=== PATIENT | male | born 1960 | race Caucasian/White ===

== ENCOUNTER → 2018-02-17 | Day surgery (SDC) | payer OTHER ==
[~2018-02-17] MED LIST: BUPIVACAINE 0.25%/EPI 30ML SDV INJ ONE; BUPROPION HCL100 MG PO; CETIRIZINE HCL10 M1 PO; DEXAMETHASONE SOD PHOS INJ 4 MG/ML VIAL ONE; FENTANYL CITRATE/PF 100MCG/2 ML INJ ONE; FLUOXETINE HCL20 MG PO; HYDROCHLOROTHIA25 MG PO; IRBESARTAN150 MG PO; KETOROLAC TROMETHAMINE 30 MG/ML VIAL ONE; LIDOCAINE HCL 1% LOCAL INJ 20 ML VIAL ONE; LIDOCAINE HCL 2% LOCAL INJ 5 ML SDV VIAL INJ ONE; LORATADINE10 MG PO; MIDAZOLAM HCL 2 MG/2 ML VIAL ONE; ONDANSETRON HCL INJ 2 MG/ML VIAL ONE; PANTOPRAZOLE SO40 MG PO; POTASSIUM CHLO10 ME1 PO; PROPOFOL IV EMULSION 10 MG/ML 20 ML VIAL ONE; SEVOFLURANE INHAL SOLN 250 ML PEN BTL ONE; ZOFRAN ODT4 MG SL
[2018-02-17 09:11] LABS: BASOPHILS % 0.4 % (0.0-1.0); EOSINOPHILS # (AUTO) 0.5 (0.0-0.4); HEMATOCRIT 37.1 % (38.2-49.6); HEMOGLOBIN 12.9 g/dL (14.0-18.0); LYMPHOCYTES # (AUTO) 1.8 (1.0-3.2); LYMPHOCYTES % 20.3 % (18.0-39.1); MEAN CORPUSCULAR HEMOGLOBIN 29.7 pg (28-32); MEAN CORPUSCULAR HGB CONC 34.8 g/dL (31-35); MEAN CORPUSCULAR VOLUME 85.3 fL (81-99); MONOCYTES # (AUTO) 0.7 (0.2-0.8); MONOCYTES % 7.4 % (4.4-11.3); NEUTROPHILS % 65.7 % (38.7-80.0); PLATELET COUNT 216 x10e3/uL (140-360); RED BLOOD COUNT 4.35 x10e6/uL (4.3-5.7); RED CELL DISTRIBUTION WIDTH 12.4 % (11.7-14.4)
[2018-02-17 09:31] LABS: ALANINE AMINOTRANSFERASE 19 IU/L (0-55); ALBUMIN 3.8 g/dL (3.5-5.0); ALBUMIN/GLOBULIN RATIO 1.2 (0.8-2.0); ALKALINE PHOSPHATASE 96 IU/L (40-150); ANION GAP 15.9 mmol/L (8-16); BLOOD UREA NITROGEN 13 mg/dL (7-26); BUN/CREATININE RATIO 13 (6-25); CALCIUM 9.8 mg/dL (8.4-10.2); CARBON DIOXIDE 25 mmol/L (22-29); CHLORIDE 97 mmol/L (98-107); CREATININE, SERUM 1.02 mg/dL (0.72-1.25); EST GLOMERULAR FILTRATION RATE > 60 ML/MIN (60-); GLUCOSE 101 mg/dL (74-118); POTASSIUM 3.9 mmol/L (3.5-5.1); SODIUM 134 mmol/L (136-145)
[2018-02-17 13:45] VITALS: BP 138/80
--- OUTSIDE RECORDS SUMMARY | 2018-03-14 05:37 | XMS REPORT | Encounter Summary ---
Author Organization Unknown Address [address] [place] [address] Phone [phone] Reason for Visit Medical Complaint Instructions 1. Acute suppurative otitis media without spontaneous rupture of ear drum Augmentin 875 mg-125 mg tablet ear infection (otitis media): care instructions fluticasone 50 mcg/actuation nasal spray,suspension 2. Otitis externa Ciprodex 0.3 %-0.1 % ear drops,suspension 3. Elevated blood-pressure reading without diagnosis of hypertension dash diet: care instructions Discussion Note Pt is in no apparent acute distress; Verbalizes understanding of and agreement with all instructions with no questions at this time. Plan of Care Patient Instructions Restart flonase, take as directed. Continue allergy medications. Take all medications as directed. Follow up with your PCP as needed. Your blood pressure was elevated at the time of your exam. It is important to tell your PCP about this, and work with them to determine the proper course of treatement to resolve. Seek additional medical care with new or worsening symptoms, or if symptoms do not resolve in 3-4 days. Thank you for allowing me to participate in your healthcare! Reminders Provider Appointments None recorded. Lab None recorded. Referral None recorded. Procedures None recorded. Surgeries None recorded. Imaging None recorded. Medications Name Start Date alendronate 70 mg tablet TAKE 1 TABLET BY MOUTH ONCE A WEEK Augmentin 875 mg-125 mg tablet Take 1 tablet every 12 hours by oral route as directed for 7 days. bupropion HCl XL 300 mg 24 hr tablet, extended release TAKE 1 TABLET BY MOUTH EVERY DAY Chlor-Trimeton Ciprodex 0.3 %-0.1 % ear drops,suspension INSTILL 4 DROPS INTO AFFECTED EAR(S) BY OTIC ROUTE 2 TIMES PER DAY FOR 7 DAYS Claritin dicyclomine 20 mg tablet TAKE 1 TABLET BY MOUTH THREE TIMES A DAY fluoxetine 20 mg capsule TAKE THREE CAPSULES BY MOUTH ONCE DAILY fluticasone 50 mcg/actuation nasal spray,suspension One spray each nostril bid x 7 days, then one spray each nostril daily x 7 days. montelukast 10 mg tablet pantoprazole 40 mg tablet,delayed release potassium chloride ER 20 mEq tablet,extended release(part/cryst) TAKE ONE TABLET BY MOUTH ONE TIME DAILY Prozac valsartan 320 mg-hydrochlorothiazide 25 mg tablet Zyrtec Medications Administered None recorded. Vitals Height Weight BMI Blood Pressure 6 ft 238 lbs 32.3 kg/m2 (1) 138/90 mm[Hg] (2) 135/85 mm[Hg] Lab Results None recorded. Allergies Code Code System Name Reaction Severity Status Onset Sulfa (Sulfonamide Antibiotics) Nausea Active Vomiting Active Problems Name Status Onset Date Source Acute Suppurative Otitis Media without Spontaneous Rupture of Ear Drum Active Encounter Allergic Rhinitis Active Encounter Elevated Blood-pressure Reading without Diagnosis of Hypertension Active Encounter Procedures None recorded. Vaccine List None recorded. 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 History of Present Illness Ear Complaint Reported By: Patient HPI: Location: bilateral. Quality: ears feel full/plugged; more intense pressure to left ear. Severity: same. Duration: constant, started 08/29/17. Onset/Timing: still present. Context: sick contact, history of ear aches/ear infections, exposure to second hand smoke. Modifying factors: does not hurt to lie on, or pull on ear, does not hurt to chew. Associated Symptoms: no discharge from the ears, no hearing loss, no nose/sinus problems, no popping noise in the ears, no ringing in the ears, no fever, no chills, no earache, no dizziness, no vertigo, no headache, no muscle aches Review of Systems:ROS as noted in the HPI Review of Systems Basic Reported By: Patient Physical Exam Adult Basic Reported By: Patient Constitutional: General Appearance: healthy-appearing, well-nourished, well-developed. Level of Distress: NAD. Ambulation: ambulating normally Psychiatric: Mental Status: active and alert. Orientation: to time, to place, to person Eyes: Lids and Conjunctivae: non-injected, no discharge, no pallor. Pupils: PERRLA. Corneas: grossly intact. EOM: EOMI. Lens: clear. Sclerae: non-icteric Egf-Suzw-Kpvpm-Throat: Ears: no lesions on external ear, no outer ear tenderness, EACs clear, middle ear fluid. Hearing: no hearing loss. Nose: no lesions on external nose, nares patent, no septal deviation, nasal passages clear, no sinus tenderness, no nasal discharge. Lips, Teeth, and Gums: no mouth or lip ulcers, no bleeding gums, normal dentition. Oropharynx: moist mucous membranes, no exudates, tonsils not enlarged, erythema Neck: Neck: supple, trachea midline, no masses, FROM. Lymph Nodes: no supraclavicular LAD, anterior cervical LAD. Thyroid: no enlargement, non-tender, no nodules Lungs: Respiratory effort: no dyspnea, no tachypnea, no use of accessory muscles, no intercostal retractions. Percussion: no dullness, flatness, or hyperresonance. Auscultation: breath sounds normal Cardiovascular: Heart Auscultation: RRR, no murmurs Neurologic: Gait and Station: normal gait, normal station. Sensation: grossly intact Skin: Inspection and palpation: no rash, no lesions
--- OUTSIDE RECORDS SUMMARY | 2018-03-14 05:37 | XMS REPORT | Encounter Summary ---
Author Organization Unknown Address [address] [place] [address] Phone [phone] Reason for Visit Medical Complaint Instructions 1. Acute suppurative otitis media without spontaneous rupture of ear drum Augmentin 875 mg-125 mg tablet ear infection (otitis media): care instructions fluticasone 50 mcg/actuation nasal spray,suspension 2. Otitis externa Ciprodex 0.3 %-0.1 % ear drops,suspension Discussion Note Pt is in no apparent acute distress; Verbalizes understanding of and agreement with all instructions with no questions at this time. Plan of Care Patient Instructions Restart flonase, take as directed. Continue allergy medications. Take all medications as directed. Follow up with your PCP as needed. Seek additional medical care with new or [...] Pressure 6 ft 238 lbs 32.3 kg/m2 138/90 mm[Hg] Lab Results None recorded. Allergies Code [...] without Spontaneous Rupture of Ear Drum; Otitis Externa David Ortiz, [facility]-C: [address] [place] [address], Ph. History of Present Illness Ear Complaint [...] intact. EOM: EOMI. Lens: clear. Sclerae: non-icteric Ccq-Oogw-Sjcph-Throat: Ears: no lesions on external ear, no [...]
--- OUTSIDE RECORDS SUMMARY | 2018-03-14 05:37 | XMS REPORT | Encounter Summary ---
Author Organization Unknown Address [address] [place] [address] Phone [phone] Reason for Visit Medical Complaint Instructions 1. Acute sinusitis sinusitis: care instructions fluticasone 50 mcg/actuation nasal spray,suspension amoxicillin 875 mg-potassium clavulanate 125 mg tablet benzonatate 200 mg capsule 2. Elevated blood pressure elevated blood pressure: care instructions low sodium diet (2,000 milligram): care instructions 3. Body mass index 30+ - obesity eating healthy foods: care instructions Discussion Note F/U with your PCP within 3-5 days if s/s continue or worsen. Handout that was given and reviewed and pt verbalized understanding. For worsenening symptoms or shortness/ chest pain develop F/U with ER [facility]. Plan of Care Patient Instructions Take charge of your health handout given and discussed. Reminders Provider Appointments None recorded. Lab None recorded. Referral None recorded. Procedures None recorded. Surgeries None recorded. Imaging None recorded. Medications Name Start Date alendronate 70 mg tablet TAKE 1 TABLET BY MOUTH ONCE A WEEK amoxicillin 875 mg-potassium clavulanate 125 mg tablet Take 1 tablet every 12 hours by oral route with meals for 7 days. benzonatate 200 mg capsule Take 1 capsule 3 times a day by oral route as needed. bupropion HCl XL 300 mg 24 hr tablet, extended release TAKE 1 TABLET BY MOUTH EVERY DAY Chlor-Trimeton ciprofloxacin 500 mg tablet TAKE 1 TABLET BY MOUTH TWICE A DAY Claritin dicyclomine 10 mg capsule TAKE 1 CAPSULE (10 MG TOTAL) BY MOUTH 2 (TWO) TIMES A DAY. dicyclomine 20 mg tablet TAKE 1 TABLET BY MOUTH THREE TIMES A DAY Flonase fluoxetine 20 mg capsule TAKE THREE CAPSULES BY MOUTH ONCE DAILY fluticasone 50 mcg/actuation nasal spray,suspension [place] 1 spray twice a day by intranasal route as directed. methylprednisolone 4 mg tablets in a dose pack TAKE DIRECTED. metronidazole 500 mg tablet TAKE 1 TABLET BY MOUTH 3 TIMES A DAY. DO NOT DRINK ALCOHOL WHILE TAKING montelukast 10 mg tablet potassium chloride ER 20 mEq tablet,extended release(part/cryst) TAKE ONE TABLET BY MOUTH ONE TIME DAILY Prozac Suprep Bowel Prep Kit 17.5 gram-3.13 gram-1.6 gram oral solution USE DIRECTED BY PHYSICIAN INSTRUCTIONS tramadol 50 mg tablet TAKE ONE (1) TABLET(S) BY MOUTH EVERY SIX HOURS NEEDED PAIN 30 DAYS. valsartan 320 mg-hydrochlorothiazide 12.5 mg tablet TAKE 1 TABLET BY MOUTH DAILY valsartan 320 mg-hydrochlorothiazide 25 mg tablet Zyrtec Medications Administered None recorded. Vitals Height Weight BMI Blood Pressure 6 ft 250 lbs 33.9 kg/m2 140/90 mm[Hg] Lab Results None recorded. Allergies Code Code System Name Reaction Severity Onset Sulfa (Sulfonamide Antibiotics) Nausea Vomiting Problems Name Status Onset Date Source Acute Suppurative Otitis Media without Spontaneous Rupture of Ear Drum Active Encounter Acute Sinusitis Active Encounter Allergic Rhinitis Active Encounter Elevated Blood-pressure Reading without Diagnosis of Hypertension Active Encounter Procedures None recorded. Vaccine List None recorded. 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 History of Present Illness Ear Complaint Reported By: Patient HPI: Location: bilateral. Quality: tension. Severity: intermittent, mild. Duration: intermittent. Onset/Timing: still present, gradual. Context: no sick contacts, no recent swimming/water in ear, no exposure to second hand smoke, no head trauma, not grinding teeth, no recent air travel. Modifying factors: hurts to lie on, or pull on ear, OTC medication. Associated Symptoms: no discharge from the ears, no popping noise in the ears, no ringing in the ears, no fever, no chills, no dizziness, no vertigo, no muscle aches, nose/sinus problems, earache, headache Review of Systems:ROS as noted in the HPI Review of Systems Basic Reported By: Patient Ihln-Cfvj-Hnkzh-Throat: Nose: nose/sinus problems Neurologic: Neurologic: no dizziness Physical Exam Adult Basic, Adult Female Complete, Adult Male Complete Reported By: Patient Constitutional: General Appearance: obese. Level of Distress: NAD. Ambulation: ambulating normally Psychiatric: Mental Status: active and alert. Orientation: to time, to place, to person Eyes: Lids and Conjunctivae: non-injected, no discharge, no pallor. Pupils: PERRLA. Sclerae: non-icteric Dhq-Hhgp-Wuffd-Throat: Ears: no lesions on external ear, no outer ear tenderness, EACs clear, TMs clear. Hearing: no hearing loss. Nose: no lesions on external nose, nares patent, no septal deviation, nasal passages clear, sinus tenderness, post nasal drip. Lips, Teeth, and Gums: no mouth or lip ulcers. Oropharynx: moist mucous membranes, no erythema, no exudates, tonsils not enlarged Neck: Neck: supple. Lymph Nodes: anterior cervical LAD Lungs: Respiratory effort: no dyspnea, no tachypnea, no use of accessory muscles, no intercostal retractions. Auscultation: breath sounds normal Cardiovascular: Heart Auscultation: RRR, no murmurs Neurologic: Gait and Station: normal gait, normal station
--- OUTSIDE RECORDS SUMMARY | 2018-03-14 05:37 | XMS REPORT | Clinical Summary ---
Author Author [facility] Organization [facility] Address Unknown Phone Unavailable Care Team Providers Care Head Swamper Name Role Phone Isra Bernstein MD PCP Allergies Active Allergy Reactions Severity Noted Date Comments Ibuprofen Other (See Comments) 03/11/2016 "His face peels" Sulfa (Sulfonamide GI Intolerance 03/11/2016 Severe vomiting Antibiotics) Current Medications Prescription Sig. Disp. Refills Start End Date Status Date potassium chloride Take 20 mEq by mouth 4 12/19/19 Active (K-DUR) 20 MEQ CR tablet daily. 16 cetirizine (ZyrTEC) 10 MG Take 10 mg by mouth Active tablet daily. loratadine (CLARITIN) 10 Take 10 mg by mouth daily Active mg tablet as needed for allergies. buPROPion XL (WELLBUTRIN Take 300 mg by mouth Active XL) 300 MG 24 hr tablet daily. FLUoxetine (PROzac) 20 MG Take 60 mg by mouth Active capsule daily. hydroCHLOROthiazide Take 25 mg by mouth Active (HYDRODIURIL) 25 MG daily. tablet irbesartan (AVAPRO) 300 Take 300 mg by mouth Active MG tablet daily. traMADol (ULTRAM) 50 mg tramadol 50 mg tablet Active tablet TAKE ONE (1) TABLET(S) BY MOUTH EVERY SIX HOURS NEEDED PAIN 30 DAYS. valsartan-hydrochlorothia 03/02/20 03/25/20 Discontin zide (DIOVAN-HCT) 16 17 ued 320-12.5 mg per tablet FLUoxetine (PROzac) 20 MG TAKE THREE CAPSULES BY 3 12/30/19 03/25/20 Discontin capsule MOUTH ONCE DAILY 16 17 ued tramadol-acetaminophen Take 1 tablet by mouth 03/25/20 Discontin (ULTRACET) 37.5-325 mg every 6 (six) hours as 17 ued per tablet needed for moderate pain. naproxen (NAPROSYN) 250 Take 250 mg by mouth 2 03/27/20 Discontin MG tablet (two) times a day with 17 ued meals. buPROPion (WELLBUTRIN) Take 100 mg by mouth 2 03/25/20 Discontin 100 MG tablet (two) times a day. 17 ued sodium,potassium,mag As directed 354 mL 0 03/15/20 03/25/20 Discontin sulfates (SUPREP BOWEL 16 17 ued PREP KIT) 17.5-3.13-1.6 gram recon solnIndications: Left lower quadrant pain dicyclomine (BENTYL) 10 Take 1 capsule (10 mg 60 capsule 0 03/15/20 03/15/20 MG capsuleIndications: total) by mouth 2 (two) 16 17 Left lower quadrant pain times a day. valsartan-hydrochlorothia Take 1 tablet by mouth 01/21/20 Discontin zide (DIOVAN HCT) 320-25 daily. 18 ued mg per tablet montelukast (SINGULAIR) Take 10 mg by mouth 01/21/20 Discontin 10 mg tablet nightly as needed. 18 ued dicyclomine (BENTYL) 20 Take 20 mg by mouth 3 01/24/20 Discontin mg tablet (three) times a day. 18 ued [Currently ON HOLD per MD since ~1 week] amoxicillin-pot Take 1 tablet by mouth 2 14 tablet 0 03/27/20 04/03/20 clavulanate (AUGMENTIN) (two) times a day for 7 17 17 875-125 mg per tablet days. pantoprazole (PROTONIX) Take 1 tablet (40 mg 60 tablet 0 03/27/20 04/26/20 40 MG EC tablet total) by mouth 2 (two) 17 17 times a day for 30 days. hyoscyamine (LEVBID) Take 0.375 mg by mouth 01/24/20 Discontin 0.375 mg 12 hr tablet every 12 (twelve) hours 18 ued as needed. [Currently ON HOLD per MD since ~1 week] pantoprazole (PROTONIX) Take 40 mg by mouth 01/22/20 Discontin 40 MG EC tablet daily. 18 ued pantoprazole (PROTONIX) Take 1 tablet (40 mg 60 tablet 0 01/22/20 02/21/20 40 MG EC tablet total) by mouth 2 (two) 18 18 times a day for 30 days. ondansetron (ZOFRAN) 4 MG Take 1 tablet (4 mg 20 tablet 0 01/22/20 02/21/20 tablet total) by mouth every 8 18 18 (eight) hours as needed for nausea or vomiting for up to 30 days. Active Problems Problem Noted Date LLQ pain 01/25/2018 Last Assessment & Plan: The etiology of LLQ pain remains unclear. I will discuss this with Dr. Fraser. If no other diagnosis can be found, he would like a laparoscopic left inguinal hernia repair with abdominal exploration. I will discuss this option with Dr. 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 Epigastric pain 01/20/2018 Gastric bypass status for obesity 04/14/2017 Last Assessment & Plan: The patient underwent RY[place] [address] Bennett and is advised to return for routine bariatric follow-up. Status post laparoscopy 03/29/2017 Last Assessment & Plan: The patient is s/p laparoscopic closure and Manish patch of perforated duodenal ulcer. He is doing well. H.pylori was negative and cultures showed no growth. He has completed Augmentin. He is instructed to avoid NSAIDS for the rest of his life, as he is s/p RYGB. He will continue Protonix BID x 6 weeks, then once daily x 6 months. Perforated viscus 03/25/2017 Diabetes mellitus (HCC) 04/27/2016 Essential hypertension 04/27/2016 Morbid obesity (HCC) 04/27/2016 Exomphalos 04/27/2016 Encounters Date Type Specialty Care Team Description 02/14/2018 Documentation General Surgery Brandi Porter MA Follow Up 2018 Office Visit General Surgery Mu Zapien MD LLQ pain (Primary Dx) 2018 Telephone General Surgery Mu Zapien MD 02/03/2018 Hospital Radiology Mu Zapien MD LLQ abdominal pain Encounter 01/31/2018 Hospital Radiology Isra Bernstein Gall bladder disease Encounter III, 01/27/2018 Orders Only General Surgery Mu Zapien MD LLQ abdominal pain (Primary Dx) 01/26/2018 Orders Only General Surgery Mu Zapien MD 01/24/2018 Hospital Radiology Mu Zapien MD Encounter 01/24/2018 Ancillary Radiology Mu Zapien MD Orders 01/23/2018 Office Visit General Surgery Mu Zapien MD Left lower quadrant pain (Primary Dx) 01/20/2018 Emergency General Surgery Loida Hill MD Epigastric pain (Primary - Keely Mike Dx) 01/21/2018 MD Curry Riley Lee M., MD 01/19/2018 Transcribe Access Isra Bernstein Gall bladder disease Orders JUAN, (Primary Dx) 04/14/2017 Office Visit General Surgery Mu Zapien MD Status post laparoscopy (Primary Dx) 03/29/2017 Office Visit General Surgery Mu Zapien MD Status post laparoscopy (Primary Dx) 03/27/2017 Documentation General Surgery Denice Zuniga, CLAIRE 03/25/2017 [facility] General Surgery Brandon Alexander MD Perforated viscus - Encounter Mu Zapien MD (Primary Dx) 03/27/2017 03/25/2017 Anesthesia Emergency Medicine Winston Gleason, 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 03/25/2017 Procedure Pass General Surgery 03/25/2017 Surgery General Surgery Mu Zapien MD LAPAROSCOPIC ABDOMINAL WASHOUt, MANISH PATCH, PERFORATED DUODENAL ULCER, WITH EGD after 02/16/2017 Family History Medical History Relation Name Comments Diabetes Brother Hypertension Brother Crohn's disease Daughter Inflammatory bowel Daughter disease Inflammatory bowel Daughter disease Ulcerative colitis Daughter No Known Problems Maternal Grandfather No Known Problems Maternal Grandmother Breast cancer Mother Pancreatic cancer Mother GERD Paternal Grandfather Other Paternal intestinal problems Grandmother GERD Sister Relation Name Status Comments Brother Alive Daughter Alive Daughter Alive Father Alive Maternal Grandfather Maternal Grandmother Mother Paternal Grandfather Paternal Grandmother Sister Alive Social History Tobacco Use Types Packs/Day Years Used Date Never Smoker Smokeless Tobacco: Never Used Alcohol Use Drinks/Week oz/Week Comments No Sex Assigned at Date Recorded Not on file Last Filed Vital Signs Vital Sign Reading Time Taken Blood Pressure 124/81 2018 2:39 PM CDT Pulse 85 2018 2:39 PM CDT Temperature 36.6 C (97.8 F) 2018 2:39 PM CDT Respiratory Rate 16 2018 2:39 PM CDT Oxygen Saturation 100% 01/21/2018 12:06 PM CDT Inhaled Oxygen - - Concentration Weight 104 kg (230 lb 3.2 oz) 2018 2:39 PM CDT Height 182.9 cm (6') 2018 2:39 PM CDT Body Mass Index 31.22 2018 2:39 PM CDT Plan of Treatment Health Maintenance Due Date Last Done Comments DIABETIC FOOT EXAM 02/08/1970 DIABETIC RETINAL EYE EXAM 02/08/1970 URINE MICROALBUMIN 02/08/1970 COLON CANCER SCREENING 02/08/2010 SHINGRIX VACCINE (#1) 02/08/2010 INFLUENZA VACCINE 12/28/2017 Implants Implanted Type Area Electrical Project Manager Device Expiration Model / Identifier Date Serial / Lot Drain Wnd Chnl 15fr 08/12in Rnd Surgical N/A: [employer] 12/27/2021 [id number] / Fl-Flut Yusra - [id number] Implants; Abdomen DIVISION / Implanted: Qty: 1 on 03/25/2017 by [employer]; [id number] Mu Zapien MD Extenders; Surgical Wires Procedures Procedure Name Priority Date/Time Associated Diagnosis Comments CT ENTEROGRAPHY Routine 02/03/2018 LLQ abdominal pain Results for this 1:39 PM CDT procedure are in the results section. NM HEPATOBILIARY W PHARM Routine 01/31/2018 Gall bladder disease Results for this 2:54 PM CDT procedure are in the results section. FOLATE LEVEL Routine 01/21/2018 Results for this 4:00 AM CDT procedure are in the results section. VITAMIN B12 LEVEL Routine 01/21/2018 Results for this 4:00 AM CDT procedure are in the results section. LACTIC ACID LEVEL, SEPSIS Timed 01/20/2018 Results for this - NOW AND REPEAT 2X EVERY 12:13 PM CDT procedure are in the 3 HOURS results section. US GALLBLADDER STAT 01/20/2018 Results for this 8:30 AM CDT procedure are in the results section. URINALYSIS SCREEN AND STAT 01/20/2018 Results for this MICROSCOPY, WITH REFLEX 7:10 AM CDT procedure are in the TO CULTURE results section. URINE CULTURE STAT 01/20/2018 Results for this 7:10 AM CDT procedure are in the results section. LIPASE LEVEL STAT 01/20/2018 Results for this 3:20 AM CDT procedure are in the results section. ZZESTIMATED GFR STAT 01/20/2018 Results for this 3:20 AM CDT procedure are in the results section. MAGNESIUM LEVEL STAT 01/20/2018 Results for this 3:20 AM CDT procedure are in the results section. PHOSPHORUS LEVEL STAT 01/20/2018 Results for this 3:20 AM CDT procedure are in the results section. LACTIC ACID LEVEL, SEPSIS STAT 01/20/2018 Results for this - NOW AND REPEAT 2X EVERY 3:20 AM CDT procedure are in the 3 HOURS results section. COMPREHENSIVE METABOLIC STAT 01/20/2018 Results for this PANEL 3:20 AM CDT procedure are in the results section. HC COMPLETE BLD COUNT STAT 01/20/2018 Results for this W/AUTO DIFF 3:20 AM CDT procedure are in the results section. CT ABD/PELVIC EXTERNAL Routine 01/17/2018 Results for this STUDY 11:30 AM CDT procedure are in the results section. POC GLUCOSE Routine 03/26/2017 Results for this 5:21 PM CDT procedure are in the results section. HELICOBACTER PYLORI ABS Routine 03/26/2017 Results for this 12:07 PM CDT procedure are in the results section. POC GLUCOSE Routine 03/26/2017 Results for this 11:57 AM CDT procedure are in the results section. HC COMPLETE BLD COUNT Routine 03/26/2017 Results for this W/AUTO DIFF 5:20 AM CDT procedure are in the results section. POC GLUCOSE Routine 03/26/2017 Results for this 4:18 AM CDT procedure are in the results section. ZZESTIMATED GFR Routine 03/26/2017 Results for this 12:00 AM CDT procedure are in the results section. BASIC METABOLIC PANEL Routine 03/26/2017 Results for this 12:00 AM CDT procedure are in the results section. POC GLUCOSE Routine 03/25/2017 Results for this 11:05 PM CDT procedure are in the results section. AFB CULTURE Timed 03/25/2017 Results for this 9:11 PM CDT procedure are in the results section. FUNGUS CULTURE Timed 03/25/2017 Results for this 9:11 PM CDT procedure are in the results section. VT AN ELECTIVE Routine 03/25/2017 ENDOTRACHEAL AIRWAY 8:21 PM CDT Procedure Note - Winston Gleason CRNA - 03/25/2017 8:20 PM CDT Airway Date/Time: 03/25/2017 7:40 PM Performed by: WINSTON GLEASON Authorized by: DHOTHER, RANDEE Location: OR Urgency: Elective Difficult Airway: No Resident/C RNA: WINSTON GLEASON Performed by: resident/C RNA Preoxygena brandi with 100% O2: Yes C-spine Precaution s Maintained Throughout : Yes Mask Ventilatio n: Assisted mask Final Airway Type: Endotrache al airway Final Endotrache al Airway: ETT Cuffed: Yes Technique Used: Video laryngosco py Insertion Site: Oral Laryngosco pe Blade/Vide olaryngosc ope Blade Size: 3 ETT Size (mm): 8.0 Cuff at minimum occlusion pressure: Yes Measured from: Teeth ETT to Teeth (cm): 22 Placement Verified by: CO2 detection, direct visualizat ion and equal breath sounds Laryngosco pic view: Grade I - full view of glottis Rapid Sequence Induction (RSI): No Modified RSI: Yes Number of Attempts at Approach: 1 AFB STAIN Timed 03/25/2017 Results for this 8:11 PM CDT procedure are in the results section. FUNGUS SMEAR Timed 03/25/2017 Results for this 8:11 PM CDT procedure are in the results section. GRAM STAIN Timed 03/25/2017 Results for this 8:11 PM CDT procedure are in the results section. AEROBIC CULTURE Timed 03/25/2017 Results for this 8:11 PM CDT procedure are in the results section. ANAEROBIC CULTURE Timed 03/25/2017 Results for this 8:11 PM CDT procedure are in the results section. EXPLORATION, ABDOMEN, 03/25/2017 perforated duodenal ulcer LAPAROSCOPIC 6:30 PM CDT LACTIC ACID LEVEL, SEPSIS Timed 03/25/2017 Results for this - NOW AND REPEAT 2X EVERY 6:16 PM CDT procedure are in the 3 HOURS results section. VT CRITICAL CARE, E/M Routine 03/25/2017 Results for this 30-74 MINUTES 4:25 PM CDT procedure are in the results section. LACTIC ACID LEVEL, SEPSIS Routine 03/25/2017 Results for this - NOW AND REPEAT 2X EVERY 1:49 PM CDT procedure are in the 3 HOURS results section. ZZESTIMATED GFR Routine 03/25/2017 Results for this 1:49 PM CDT procedure are in the results section. TROPONIN Routine 03/25/2017 Results for this 1:49 PM CDT procedure are in the results section. COMPREHENSIVE METABOLIC Routine 03/25/2017 Results for this PANEL 1:49 PM CDT procedure are in the results section. URINALYSIS SCREEN AND Routine 03/25/2017 Results for this MICROSCOPY, WITH REFLEX 1:20 PM CDT procedure are in the TO CULTURE results section. BLOOD CULTURE, AEROBIC & Routine 03/25/2017 Results for this ANAEROBIC 1:15 PM CDT procedure are in the results section. BLOOD CULTURE, AEROBIC & Routine 03/25/2017 Results for this ANAEROBIC 1:10 PM CDT procedure are in the results section. CT ANGIOGRAM CHEST STAT 03/25/2017 Results for this ABDOMEN PELVIS W AND OR 11:52 AM CDT procedure are in the WITHOUT CONTRAST results section. XR CHEST 1 VW PORTABLE STAT 03/25/2017 Results for this 10:34 AM CDT procedure are in the results section. ECG 12-LEAD STAT 03/25/2017 Results for this 10:27 AM CDT procedure are in the results section. POC GLUCOSE Routine 03/25/2017 Results for this 10:26 AM CDT procedure are in the results section. ZZESTIMATED GFR Routine 03/25/2017 Results for this 10:13 AM CDT procedure are in the results section. B NATRIURETIC PEPTIDE Routine 03/25/2017 Results for this 10:13 AM CDT procedure are in the results section. TROPONIN Routine 03/25/2017 Results for this 10:13 AM CDT procedure are in the results section. COMPREHENSIVE METABOLIC Routine 03/25/2017 Results for this PANEL 10:13 AM CDT procedure are in the results section. PARTIAL THROMBOPLASTIN Routine 03/25/2017 Results for this TIME (PTT) 10:13 AM CDT procedure are in the results section. PROTHROMBIN TIME WITH INR Routine 03/25/2017 Results for this 10:13 AM CDT procedure are in the results section. HC COMPLETE BLD COUNT Routine 03/25/2017 Results for this W/AUTO DIFF 10:13 AM CDT procedure are in the results section. URINE CULTURE Routine 03/25/2017 Results for this 10:00 AM CDT procedure are in the results section. ECG 12-LEAD STAT 03/25/2017 Results for this 9:51 AM CDT procedure are in the results section. after 02/16/2017 Results * CT Enterography (02/03/2018 1:39 PM) Narrative Performed At EXAMINATION:CT ENTEROGRAPHY [facility] CLINICAL HISTORY:R10.32 Left lower quadrant pain, LLQ Pain TECHNIQUE:Multiple axial images of the abdomen and pelvis were obtained during intravenous administration of iodinated contrast. Low density oral contrast was administered (CT enterography protocol). Sagittal and coronal computerized reformatted images were also obtained. CT scans are performed using radiation dose reduction techniques. Technical factors are evaluated and adjusted to ensure appropriate moderation of exposure. Automated dose management technology is applied to adjust radiation exposure while achieving a diagnostic quality image COMPARISON:Outside CT 17 January 2018, [facility] CT scan 25 March 2017 IMPRESSION: Abdomen: Liver demonstrates mild fatty metamorphosis.Gallbladder contains no stones.Portal vein is patent. Spleen is normal in size.The pancreas is normal. The adrenal glands are not enlarged.The kidneys demonstrate symmetric bilateral perfusion with no mass or obstruction. Abdominal aorta was of normal caliber. Postoperative changes are present probably gastric bypass surgery with no focal dilatation noted. Small bowel enterography protocol was followed with reasonable dilatation of both the small bowel and colon.There is a small bowel to small bowel suture line noted in the left lower quadrant best seen on sequence 2 image 166 and sequence 300 image 92. There is no mass effect and no focal dilatation or stricture identifiable at the site of the anastomosis.Overall small bowel loops were normal in diameter with no inflammatory changes noted. There are scattered diverticula with no definite inflammatory change. Pelvis: Sigmoid diverticula are numerous with no inflammation.There is no pelvic mass or fluid collection.There is a inguinal hernia on the left which contains only omental fat without inflammation. [id number] Procedure Note Hm Interface, Radiology Results Incoming - 02/03/2018 2:13 PM CDT EXAMINATION: CT ENTEROGRAPHY CLINICAL HISTORY: R10.32 Left lower quadrant pain, LLQ Pain TECHNIQUE: Multiple axial images of the abdomen and pelvis were obtained during intravenous administration of iodinated contrast. Low density oral contrast was administered (CT enterography protocol). Sagittal and coronal computerized reformatted images were also obtained. CT scans are performed using radiation dose reduction techniques. Technical factors are evaluated and adjusted to ensure appropriate moderation of exposure. Automated dose management technology is applied to adjust radiation exposure while achieving a diagnostic quality image COMPARISON: Outside CT 17 January 2018, [facility] CT scan 25 March 2017 IMPRESSION: Abdomen: Liver demonstrates mild fatty metamorphosis. Gallbladder contains no stones. Portal vein is patent. Spleen is normal in size. The pancreas is normal. The adrenal glands are not enlarged. The kidneys demonstrate symmetric bilateral perfusion with no mass or obstruction. Abdominal aorta was of normal caliber. Postoperative changes are present probably gastric bypass surgery with no focal dilatation noted. Small bowel enterography protocol was followed with reasonable dilatation of both the small bowel and colon. There is a small bowel to small bowel suture line noted in the left lower quadrant best seen on sequence 2 image 166 and sequence 300 image 92. There is no mass effect and no focal dilatation or stricture identifiable at the site of the anastomosis. Overall small bowel loops were normal in diameter with no inflammatory changes noted. There are scattered diverticula with no definite inflammatory change. Pelvis: Sigmoid diverticula are numerous with no inflammation. There is no pelvic mass or fluid collection. There is a inguinal hernia on the left which contains only omental fat without inflammation. [id number] Performing Organization Address City/State/Zipcode Phone Number [facility] [address] [place] [address] * DC Hepatobiliary W Pharm (HIDA Scan w Pharm) (01/31/2018 2:54 PM) Narrative Performed At PROCEDURE:DC HEPATOBILIARY W PHARM (HIDA SCAN W PHARM) [facility] INDICATION: Gallbladder disease. TECHNIQUE: The patient was injected with 5 mCi of Tc-99m Choletec and planar dynamic images of the abdomen were acquired for one hour. The patient was then given a fatty meal and a gallbladder ejection fraction was calculated. FINDINGS: Tracer is seen within small bowel by one hour.The gallbladder was only noted on delayed imaging obtained at 90 minutes.After CCK infusion, there appears to be normal contraction of the gallbladder.Exact ejection fraction cannot be calculated given overlying bowel.Reflux into the stomach is noted. IMPRESSION: 1.Probable normal study.Exact gallbladder ejection fraction cannot be calculated, due to interfering loops of small bowel. 2.Enterogastric reflux. [facility]-[id number] Procedure Note Interface, Radiology Results Incoming - 01/31/2018 5:34 PM CDT PROCEDURE: DC HEPATOBILIARY W PHARM (HIDA SCAN W PHARM) INDICATION: Gallbladder disease. TECHNIQUE: The patient was injected with 5 mCi of Tc-99m Choletec and planar dynamic images of the abdomen were acquired for one hour. The patient was then given a fatty meal and a gallbladder ejection fraction was calculated. FINDINGS: Tracer is seen within small bowel by one hour. The gallbladder was only noted on delayed imaging obtained at 90 minutes. After CCK infusion, there appears to be normal contraction of the gallbladder. Exact ejection fraction cannot be calculated given overlying bowel. Reflux into the stomach is noted. IMPRESSION: 1. Probable normal study. Exact gallbladder ejection fraction cannot be calculated, due to interfering loops of small bowel. 2. Enterogastric reflux. [facility]-[id number] Performing Organization Address [facility]/[place] [address] * Folate level (01/21/2018 4:00 AM) Folate 15.6 4.8 - 24.2 ng/mL [facility] DEPARTMENT OF PATHOLOGY AND GENOMIC MEDICINE Specimen Serum Performing Organization Address [facility]ode Phone Number [facility] [place] [address] PATHOLOGY AND GENOMIC MEDICINE * Vitamin B12 level (01/21/2018 4:00 AM) Vitamin B12 >1600 (H) 211 - 946 pg/mL [facility] DEPARTMENT OF Comment: PATHOLOGY AND Significant overlap exists GENOMIC MEDICINE between normal and deficiency states. However, most patients with deficiencies will have Serum B12 <200 pg/mL. Specimen Serum Performing Organization Address [facility]ode Phone Number [facility] [place] [address] PATHOLOGY AND GENOMIC MEDICINE * Lactic acid level, SEPSIS - Now and repeat 2x every 3 hours (01/20/2018 12:13 PM) Only the most recent of 4 results within the time period is included. Lactic acid 0.9 0.5 - 2.2 mmol/L [facility] DEPARTMENT OF PATHOLOGY AND GENOMIC MEDICINE Specimen Blood Performing Organization Address [facility]ome Phone Number [facility] [place] [address] PATHOLOGY AND GENOMIC MEDICINE * US Gallbladder (01/20/2018 8:30 AM) Narrative Performed At Gallbladder ultrasound, 01/20/2018 8:31 AM [facility] Clinical history: Unspecified abdominal pain Comparison: None Technique: Grayscale and color Doppler ultrasound Findings: Gallbladder: Dependent sludge without conspicuous stone. Wall thickness: 0.2 cm. Common bile duct diameter: 0.3 cm Impression: Gallbladder sludge without evidence of acute cholecystitis. Procedure Note Interface, Radiology Results Incoming - 01/20/2018 8:36 AM CDT Gallbladder ultrasound, 01/20/2018 8:31 AM Clinical history: Unspecified abdominal pain Comparison: None Technique: Grayscale and color Doppler ultrasound Findings: Gallbladder: Dependent sludge without conspicuous stone. Wall thickness: 0.2 cm. Common bile duct diameter: 0.3 cm Impression: Gallbladder sludge without evidence of acute cholecystitis. Performing Organization Address City/State/Zipcode Phone Number [facility] [address] [place] [address] * Urinalysis screen and microscopy, with reflex to culture (01/20/2018 7:10 AM) Only the most recent of 2 results within the time period is included. Specimen site Clean catch [facility] DEPARTMENT OF PATHOLOGY AND GENOMIC MEDICINE Color, UA Yellow [facility] DEPARTMENT OF PATHOLOGY AND GENOMIC MEDICINE Appearance, UA Clear [facility] DEPARTMENT OF PATHOLOGY AND GENOMIC MEDICINE Specific gravity, UA 1.019 1.001 - 1.035 [facility] DEPARTMENT OF PATHOLOGY AND GENOMIC MEDICINE pH, UA 5.0 5.0 - 8.5 [facility] DEPARTMENT OF PATHOLOGY AND GENOMIC MEDICINE Protein, UA Negative Negative [facility] [facility] DEPARTMENT OF PATHOLOGY AND GENOMIC MEDICINE Glucose, UA 1+ (A) Negative [facility] DEPARTMENT OF Comment: PATHOLOGY AND UGLU/UKET results called to [facility] and read back by BJORN GONSALES/YONI (name/location) at01/20/201807:49 ___ (date/time) by DB__. Ketones, UA 1+ (A) Negative [facility] DEPARTMENT OF PATHOLOGY AND GENOMIC MEDICINE Bilirubin, UA Negative Negative [facility] DEPARTMENT OF PATHOLOGY AND GENOMIC MEDICINE Blood, UA Negative Negative [facility] DEPARTMENT OF PATHOLOGY AND GENOMIC MEDICINE Nitrite, UA Negative Negative [facility] DEPARTMENT OF PATHOLOGY AND GENOMIC MEDICINE Urobilinogen, UA <2.0 <2.0 [facility] DEPARTMENT OF PATHOLOGY AND GENOMIC MEDICINE Leukocyte esterase, UA Negative Negative [facility] DEPARTMENT OF PATHOLOGY AND GENOMIC MEDICINE Epithelial cells, UA 3 /HPF [facility] DEPARTMENT OF PATHOLOGY AND GENOMIC MEDICINE Round epithelial cells, <1 0 - 1 /HPF [facility] DEPARTMENT OF UA PATHOLOGY AND GENOMIC MEDICINE WBC, UA 2 (H) 0 - 1 /HPF [facility] DEPARTMENT OF PATHOLOGY AND GENOMIC MEDICINE RBC, UA 1 0 - 5 /HPF [facility] DEPARTMENT OF PATHOLOGY AND GENOMIC MEDICINE Bacteria, UA None seen None seen [facility] DEPARTMENT OF PATHOLOGY AND GENOMIC MEDICINE Yeast, UA None seen [facility] DEPARTMENT OF PATHOLOGY AND GENOMIC MEDICINE Yeast with pseudohyphae, None seen [facility] DEPARTMENT UA PATHOLOGY AND GENOMIC MEDICINE Hyaline casts, UA 10 /LPF [facility] DEPARTMENT OF PATHOLOGY AND GENOMIC MEDICINE Specimen Urine Performing Organization Address City/State/Zipcode Phone Number [facility] DEPARTMENT [address] [address] PATHOLOGY AND GENOMIC MEDICINE * Urine culture (01/20/2018 7:10 AM) Only the most recent of 2 results within the time period is included. Urine culture SEE COMMENTComment: [facility] DEPARTMENT OF Bacteriuria screen negative. PATHOLOGY AND GENOMIC MEDICINE Performing Organization Address City/[facility]ode Phone Number [address] [address] PATHOLOGY AND GENOMIC MEDICINE * Estimated GFR (01/20/2018 3:20 AM) Only the most recent of 4 results within the time period is included. GFR Non Af Amer 69 mL/min/1.73 m2 [facility] DEPARTMENT OF PATHOLOGY AND GENOMIC MEDICINE GFR Af Amer 83 mL/min/1.73 m2 [facility] DEPARTMENT OF Comment: PATHOLOGY AND Chronic kidney disease: <60 GENOMIC MEDICINE mL/min/1.73m2 Kidney failure: <15 mL/min/1.73m2 The estimated GFR is calculated from the IDMS-traceable Modification of Diet in Renal Disease Equation. The accuracy of the calculation is poor when the creatinine is normal. Calculated values >90 mL/min/1.73m2 are not reported. This equation has not been validated in children (<18 years), women, the elderly (>70 years), or ethnic groups other than Caucasians and Americans. Specimen Plasma specimen Performing Organization Address City/[facility] Centercode Phone Number [address] [address] PATHOLOGY AND GENOMIC MEDICINE * CBC with platelet and differential (01/20/2018 3:20 AM) Only the most recent of 3 results within the time period is included. WBC 10.51 4.50 - 11.00 k/uL [facility] DEPARTMENT OF PATHOLOGY AND GENOMIC MEDICINE RBC 4.56 4.40 - 6.00 m/uL [facility] DEPARTMENT OF PATHOLOGY AND GENOMIC MEDICINE HGB 13.0 (L) 14.0 - 18.0 g/dL [facility] DEPARTMENT OF PATHOLOGY AND GENOMIC MEDICINE HCT 39.3 (L) 41.0 - 51.0 % [facility] DEPARTMENT OF PATHOLOGY AND GENOMIC MEDICINE MCV 86.2 82.0 - 100.0 fL [facility] DEPARTMENT OF PATHOLOGY AND GENOMIC MEDICINE MCH 28.5 27.0 - 34.0 pg [facility] DEPARTMENT OF PATHOLOGY AND GENOMIC MEDICINE MCHC 33.1 31.0 - 37.0 g/dL [facility] DEPARTMENT OF PATHOLOGY AND GENOMIC MEDICINE RDW - SD 38.9 37.0 - 55.0 fL [facility] DEPARTMENT OF PATHOLOGY AND GENOMIC MEDICINE MPV 9.6 8.8 - 13.2 fL [facility] DEPARTMENT OF PATHOLOGY AND GENOMIC MEDICINE Platelet count 222 150 - 400 k/uL [facility] DEPARTMENT OF PATHOLOGY AND GENOMIC MEDICINE Nucleated RBC 0.00 /100 WBC [facility] DEPARTMENT OF PATHOLOGY AND GENOMIC MEDICINE Neutrophils 80.3 (H) 39.0 - 69.0 % [facility] DEPARTMENT OF PATHOLOGY AND GENOMIC MEDICINE Lymphocytes 7.6 (L) 25.0 - 45.0 % [facility] DEPARTMENT OF PATHOLOGY AND GENOMIC MEDICINE Monocytes 10.2 (H) 0.0 - 10.0 % [facility] DEPARTMENT OF PATHOLOGY AND GENOMIC MEDICINE Eosinophils 1.2 0.0 - 5.0 % [facility] DEPARTMENT OF PATHOLOGY AND GENOMIC MEDICINE Basophils 0.3 0.0 - 1.0 % [facility] DEPARTMENT OF PATHOLOGY AND GENOMIC MEDICINE Immature granulocytes 0.4Comment: "Immature 0.0 - 1.0 % [facility] DEPARTMENT OF granulocytes" (promyelocytes, PATHOLOGY AND myelocytes, metamyelocytes) GENOMIC MEDICINE Specimen Blood Performing Organization Address [facility] Cent[facility] [address] PATHOLOGY AND GENOMIC MEDICINE * Phosphorus level (01/20/2018 3:20 AM) Phosphorus 1.4 (L) 2.4 - 4.5 mg/dL [facility] DEPARTMENT OF PATHOLOGY AND GENOMIC MEDICINE Specimen Plasma specimen Performing Organization Address [facility] [place] [address] PATHOLOGY AND [facility] MED[facility]INE * Magnesium level (01/20/2018 3:20 AM) Magnesium 2.0 1.6 - 2.6 mg/dL [facility] DEPARTMENT OF PATHOLOGY AND GENOMIC MEDICINE Specimen Plasma specimen Performing Organization Address [facility] [place] [address] PATHOLOGY AND [facility] MED[facility] * Lipase level (01/20/2018 3:20 AM) Lipase 58 13 - 60 U/L [facility] DEPARTMENT OF PATHOLOGY AND GENOMIC MEDICINE Specimen Plasma specimen Performing Organization Address [facility] Centerc[place] [address] PATHOLOGY AND GENOMIC MEDICINE * Comprehensive metabolic panel (01/20/2018 3:20 AM) Only the most recent of 3 results within the time period is included. Sodium 135 135 - 148 mEq/L [facility] DEPARTMENT OF PATHOLOGY AND GENOMIC MEDICINE Potassium 4.0 3.5 - 5.0 mEq/L [facility] DEPARTMENT OF PATHOLOGY AND GENOMIC MEDICINE Chloride 95 (L) 98 - 112 mEq/L [facility] DEPARTMENT OF PATHOLOGY AND GENOMIC MEDICINE CO2 26 24 - 31 mEq/L [facility] DEPARTMENT OF PATHOLOGY AND GENOMIC MEDICINE Anion gap 14@ANIO 7 - 15 mEq/L [facility] DEPARTMENT OF PATHOLOGY AND GENOMIC MEDICINE BUN 14 6 - 20 mg/dL [facility] DEPARTMENT OF PATHOLOGY AND GENOMIC MEDICINE Creatinine 1.1 0.7 - 1.2 mg/dL [facility] DEPARTMENT OF PATHOLOGY AND GENOMIC MEDICINE Glucose 125 (H) 65 - 99 mg/dL [facility] DEPARTMENT OF PATHOLOGY AND GENOMIC MEDICINE Calcium 9.2 8.3 - 10.2 mg/dL [facility] DEPARTMENT OF PATHOLOGY AND GENOMIC MEDICINE Protein 6.8 6.3 - 8.3 g/dL [facility] DEPARTMENT OF Comment: PATHOLOGY AND [place] GENOMIC MEDICINE 4.6-7.0 g/dL 1 week 4.4-7.6 g/dL 7 months-1year 5.1-7.3 g/dL 1-2 years5.6-7 .5 g/dL >3 years6.0-8 .0 g/dL 18-150 6.3-8.3 g/dL Albumin 3.3 (L) 3.5 - 5.0 g/dL [facility] DEPARTMENT OF PATHOLOGY AND GENOMIC MEDICINE A/G ratio 0.9 0.7 - 3.8 [facility] DEPARTMENT OF PATHOLOGY AND GENOMIC MEDICINE Alkaline phosphatase 102 40 - 129 U/L [facility] DEPARTMENT OF PATHOLOGY AND GENOMIC MEDICINE AST 18 10 - 50 U/L [facility] DEPARTMENT OF PATHOLOGY AND GENOMIC MEDICINE ALT 11 5 - 50 U/L [facility] DEPARTMENT OF PATHOLOGY AND GENOMIC MEDICINE Total bilirubin 0.3 0.0 - 1.2 mg/dL [facility] DEPARTMENT OF PATHOLOGY AND GENOMIC MEDICINE Specimen Plasma specimen Performing Organization Address City/State/Zipcode Phone Number [facility] DEPARTMENT OF [address] [place] [address] PATHOLOGY AND GENOMIC MEDICINE * CT Abd/Pelvic External Study (01/17/2018 11:30 AM) Narrative Performed At This exam was not acquired at a Orthodox facility and has not been [facility] interpreted by a Orthodox Provider.The exam was imported into our imaging system for comparisons purposes. Performing Organization Address City/State/[place] [address] * POC glucose (03/26/2017 5:21 PM) Only the most recent of 5 results within the time period is included. POC glucose 103 (H) 65 - 99 mg/dL [facility] DEPARTMENT OF Comment: PATHOLOGY AND No Action Needed GENOMIC MEDICINE Meter ID: [id number] Document Manager: Deneen Hartman Performing Organization Address City/[facility]/[place] [address] PATHOLOGY AND GENOMIC MEDICINE * Helicobacter pylori Abs (03/26/2017 12:07 PM) Helicobacter pylori Negative Negative [facility] DEPARTMENT OF [facility] PATHOLOGY AND GENOMIC MEDICINE Specimen Blood Performing Organization Address [facility] Centerc[place] [address] PATHOLOGY AND GENOMIC MEDICINE * Basic metabolic panel (03/26/2017) Sodium 137 135 - 148 mEq/L [facility] DEPARTMENT OF PATHOLOGY AND GENOMIC MEDICINE Potassium 4.1 3.5 - 5.0 mEq/L [facility] DEPARTMENT OF PATHOLOGY AND GENOMIC MEDICINE Chloride 97 (L) 98 - 112 mEq/L [facility] DEPARTMENT OF PATHOLOGY AND GENOMIC MEDICINE CO2 27 24 - 31 mEq/L [facility] DEPARTMENT OF PATHOLOGY AND GENOMIC MEDICINE Anion gap 13 7 - 15 mEq/L [facility] DEPARTMENT OF Comment: PATHOLOGY AND Starting from August GENOMIC MEDICINE , anion gap calculation no longer incorporates potassium. Please note the change. BUN 17 6 - 20 mg/dL [facility] DEPARTMENT OF PATHOLOGY AND GENOMIC MEDICINE Creatinine 0.9 0.7 - 1.2 mg/dL [facility] DEPARTMENT OF PATHOLOGY AND GENOMIC MEDICINE Glucose 203 (H) 65 - 99 mg/dL [facility] DEPARTMENT OF PATHOLOGY AND GENOMIC MEDICINE Calcium 8.4 8.3 - 10.2 mg/dL [facility] DEPARTMENT OF PATHOLOGY AND GENOMIC MEDICINE Specimen Plasma specimen Performing Organization Address City/[facility]/[place] [address] PATHOLOGY AND GENOMIC MEDICINE * AFB culture (03/25/2017 9:11 PM) AFB culture isolate No growth after 6 weeks of [facility] DEPARTMENT OF incubation. PATHOLOGY AND Comment: GENOMIC MEDICINE Specimen Information Specimen Source: Abdominal fluid Specimen Site: Contaminated abdominal fluid Specimen Abdominal fluid Performing Organization Address City/[facility]/Zipcode Phone Number [facility] DEPARTMENT OF [address] [place] [address] PATHOLOGY AND GENOMIC MEDICINE * Fungus culture (03/25/2017 9:11 PM) Fungus culture isolate No growth after 4 weeks of [facility] DEPARTMENT OF incubation. PATHOLOGY AND Comment: GENOMIC MEDICINE Specimen Information Specimen Source: Abdominal fluid Specimen Site: Contaminated abdominal fluid Specimen Abdominal fluid Performing Organization Address City/State/Zipcode Phone Number [facility] DEPARTMENT OF [address] [place] [address] PATHOLOGY AND GENOMIC MEDICINE * Fungus smear (03/25/2017 8:11 PM) Fungus smear No fungi observed. [facility] DEPARTMENT OF Comment: PATHOLOGY AND Specimen Information GENOMIC MEDICINE Specimen Source: Abdominal fluid Specimen Site: Contaminated abdominal fluid Specimen Abdominal fluid Performing Organization Address [facility] Centercode Phone Number [facility] DEPARTMENT OF [address] [place] [address] PATHOLOGY AND GENOMIC MEDICINE * Aerobic culture (03/25/2017 8:11 PM) Aerobic culture isolate No growth after 3 days. [facility] DEPARTMENT OF Comment: PATHOLOGY AND Specimen Information GENOMIC MEDICINE Specimen Source: Abdominal fluid Specimen Site: Contaminated abdominal fluid Specimen Abdominal fluid Performing Organization Address [facility] Centercode Phone Number [facility] DEPARTMENT OF [address] [place] [address] PATHOLOGY AND GENOMIC MEDICINE * Gram stain (03/25/2017 8:11 PM) Gram stain isolate Many WBC's [facility] DEPARTMENT OF No organisms seen PATHOLOGY AND Comment: GENOMIC MEDICINE Specimen Information Specimen Source: Abdominal fluid Specimen Site: Contaminated abdominal fluid Specimen Abdominal fluid Performing Organization Address City/[facility]ercode Phone Number [facility] DEPARTMENT OF [address] [place] [address] PATHOLOGY AND GENOMIC MEDICINE * AFB stain (03/25/2017 8:11 PM) AFB stain No acid fast bacilli (AFB) [facility] DEPARTMENT OF seen. PATHOLOGY AND Comment: GENOMIC MEDICINE Specimen Information Specimen Source: Abdominal fluid Specimen Site: Contaminated abdominal fluid Specimen Abdominal fluid Performing Organization Address City/[facility]/Zipcode Phone Number [facility] DEPARTMENT OF [address] [place] [address] PATHOLOGY AND GENOMIC MEDICINE * Anaerobic culture (03/25/2017 8:11 PM) Anaerobic culture isolate No anaerobic organisms [facility] DEPARTMENT OF isolated. PATHOLOGY AND Comment: GENOMIC MEDICINE Specimen Information Specimen Source: Abdominal fluid Specimen Site: Contaminated abdominal fluid Specimen Abdominal fluid - Other Performing Organization Address City/[facility]/Zipcode Phone Number [facility] DEPARTMENT OF [address] [place] [address] PATHOLOGY AND GENOMIC MEDICINE * CRITICAL CARE (03/25/2017 4:25 PM) Narrative Performed At Brandon Alexander MD 03/25/20174:25 PM Critical Care Performed by: BRANDON ALEXANDER Authorized by: BRANDON ALEXANDER Critical care provider statement: Critical care time (minutes):35 Critical care time was exclusive of:Separately billable procedures and treating other patients and teaching time Critical care was necessary to treat or prevent imminent or life-threatening deterioration of the following conditions: perforated duodenal ulcer. Critical care was time spent personally by me on the following activities:Blood draw for specimens, development of treatment plan with patient or surrogate, discussions with consultants, discussions with primary provider, evaluation of patient's response to treatment, obtaining history from patient or surrogate, ordering and performing treatments and interventions, ordering and review of laboratory studies, pulse oximetry, review of old charts, re-evaluation of patient's condition and ordering and review of radiographic studies * Troponin (03/25/2017 1:49 PM) Only the most recent of 2 results within the time period is included. Troponin <0.30 0.00 - 0.30 ng/mL [facility] DEPARTMENT OF Comment: PATHOLOGY AND 0.30 - 1.49 GENOMIC MEDICINE ng/mlMay indicate increased risk of acute coronary syndrome. >=1.5 ng/ml Consistent with acute myocardial infarction. The diagnostic value of a single normal or non-diagnostic result is questionable.Serial samples at 2-6 hour intervals are required to rule out acute myocardial injury. Specimen Plasma specimen Performing Organization Address City/State/Zipcode Phone Number [address] [address] PATHOLOGY AND GENOMIC MEDICINE * Blood culture, aerobic & anaerobic (03/25/2017 1:15 PM) Only the most recent of 2 results within the time period is included. Blood culture isolate No growth after 5 days of [facility] DEPARTMENT OF incubation. PATHOLOGY AND Comment: GENOMIC MEDICINE Specimen Information Specimen Source: Blood Specimen Site: Forearm, right Specimen Blood - Forearm, right Performing Organization Address City/State/Zipcode Phone Number [facility] DEPARTMENT OF [address] [place] [address] PATHOLOGY AND GENOMIC MEDICINE * CT Angiogram Chest W Contrast Abdomen W Contrast Pelvis W Contrast (03/25/2017 11:52 AM) Narrative Performed At EXAMINATION:CT ANGIOGRAM CHEST ABDOMEN PELVIS W AND OR WITHOUT CONTRAST [facility]IANT CLINICAL HISTORY:Chest pain. Evaluate for dissection. TECHNIQUE:Multiple CT angiographic images of the chest, abdomen, and pelvis were obtained during intravenous administration of contrast. Multiple computerized reformatted images as well as 3-D volume rendered images were also obtained. Scan was performed using radiation dose reduction techniques. COMPARISON:CT abdomen and pelvis May 11, 2016 FINDINGS: CTA: 1.Aorta is slightly tortuous and normal in caliber. No aortic dissection. 2.No pulmonary arterial filling defects are seen. 3.Major visceral arterial branches from the abdominal aorta are adequately patent. Separate origins are noted of the common hepatic and the replaced left hepatic arteries. There are 2 right renal arteries. 4.Bilateral iliac arteries without significant disease. Other Chest: 1.Extensive dependent-basilar atelectasis. Central airways are patent. 2.No pleural or pericardial effusion. 3.Minimal gynecomastia. Other Abdomen and Pelvis: 1. There is trace perihepatic free fluid and tiny pneumoperitoneum. 2.Some thickening and stranding is seen in the proximal duodenum. 3.Gallbladder is slightly distended with mild adjacent stranding, thought to be likely secondary to the adjacent duodenal process. Pancreas is atrophic but otherwise unremarkable. 4.Patient is status post Gayle-en-Y gastric bypass surgery. There is no bowel obstruction. 5.Extensive diverticulosis in the distal colon without diverticulitis. 6.Small left inguinal hernia contains fat. IMPRESSION: No aortic dissection. Small free fluid and free air in RUQ is most likely related to perforated duodenal ulcer. Status post Gayle-en-Y gastric bypass surgery. No bowel obstruction. Findings were discussed withDR. BRANDON ALEXANDER at 03/25/2017 12:02 PM who verbalized understanding. [id number] Procedure Note Interface, Radiology Results Incoming - 03/25/2017 12:05 PM CDT EXAMINATION: CT ANGIOGRAM CHEST ABDOMEN PELVIS W AND OR WITHOUT CONTRAST CLINICAL HISTORY: Chest pain. Evaluate for dissection. TECHNIQUE: Multiple CT angiographic images of the chest, abdomen, and pelvis were obtained during intravenous administration of contrast. Multiple computerized reformatted images as well as 3-D volume rendered images were also obtained. Scan was performed using radiation dose reduction techniques. COMPARISON: CT abdomen and pelvis May 11, 2016 FINDINGS: CTA: 1. Aorta is slightly tortuous and normal in caliber. No aortic dissection. 2. No pulmonary arterial filling defects are seen. 3. Major visceral arterial branches from the abdominal aorta are adequately patent. Separate origins are noted of the common hepatic and the replaced left hepatic arteries. There are 2 right renal arteries. 4. Bilateral iliac arteries without significant disease. Other Chest: 1. Extensive dependent-basilar atelectasis. Central airways are patent. 2. No pleural or pericardial effusion. 3. Minimal gynecomastia. Other Abdomen and Pelvis: 1. There is trace perihepatic free fluid and tiny pneumoperitoneum. 2. Some thickening and stranding is seen in the proximal duodenum. 3. Gallbladder is slightly distended with mild adjacent stranding, thought to be likely secondary to the adjacent duodenal process. Pancreas is atrophic but otherwise unremarkable. 4. Patient is status post Gayle-en-Y gastric bypass surgery. There is no bowel obstruction. 5. Extensive diverticulosis in the distal colon without diverticulitis. 6. Small left inguinal hernia contains fat. IMPRESSION: No aortic dissection. Small free fluid and free air in RUQ is most likely related to perforated duodenal ulcer. Status post Gayle-en-Y gastric bypass surgery. No bowel obstruction. Findings were discussed with DR. BRANDON ALEXANDER at 03/25/2017 12:02 PM who verbalized understanding. [id number] Performing Organization Address City/State/Zipcode Phone Number [facility] [address] [place] [address] * XR Chest 1 Vw Portable (03/25/2017 10:34 AM) Narrative Performed At EXAMINATION:XR CHEST 1 VW PORTABLE [facility] CLINICAL HISTORY:Chest Pain COMPARISON:None. IMPRESSION: Single frontal view reveals a normal cardiomediastinal silhouette. Patchy bibasilar airspace opacities are seen concerning for early developing pneumonia. Pleural margins are sharp. The remainder of the examination is unremarkable. [id number] Procedure Note Interface, Radiology Results Incoming - 03/25/2017 10:42 AM CDT EXAMINATION: XR CHEST 1 VW PORTABLE CLINICAL HISTORY: Chest Pain COMPARISON: None. IMPRESSION: Single frontal view reveals a normal cardiomediastinal silhouette. Patchy bibasilar airspace opacities are seen concerning for early developing pneumonia. Pleural margins are sharp. The remainder of the examination is unremarkable. [id number] Performing Organization Address [facility] Phone Number [facility] [address] [place] [address] * ECG 12 lead (03/25/2017 10:27 AM) Only the most recent of 2 results within the time period is included. Ventricular rate 86 [facility]USE Atrial rate 86 [facility] MUSE VT interval 166 [facility] QRSD interval 136 [facility] QT interval 410 [facility] QTC interval 490 [facility] MUSE P axis 1 80 [facility] QRS axis 1 204 [facility] T wave axis 61 [facility] EKG impression Normal sinus rhythm-Right [facility] bundle branch block-Abnormal ECG-No previous ECGs available- Performing Organization Address [facility] Phone Number [facility] M[facility] [address] [place] [address] * Partial thromboplastin time, activated (03/25/2017 10:13 AM) PTT 25.3 23.0 - 36.0 sec [facility] DEPARTMENT OF Comment: PATHOLOGY AND PTT therapeutic range for [place] MEDICINE unfractionated heparin is 61.0-112.0 seconds which corresponds to Anti-Xa 0.3-0.7 U/ml. Specimen Blood Performing Organization Address [facility]ode Phone Number [facility] DEPARTMENT OF [address] [place] [address] PATHOLOGY AND GENOMIC MEDICINE * Prothrombin time with INR (03/25/2017 10:13 AM) Prothrombin time 14.0 12.0 - 15.0 sec [facility] DEPARTMENT OF PATHOLOGY AND GENOMIC MEDICINE INR 1.1 [facility] DEPARTMENT OF Comment: PATHOLOGY AND The International Normalized GENOMIC MEDICINE Ratio (INR) is a therapeutic monitoring tool for patients who are stable on oral anticoagulant therapy. An INR of 2.0-3.0 is suggested for deep vein thrombosis/pulmonary embolism. Specimen Blood Performing Organization Address City/State/Zipcode Phone Number [facility] DEPARTMENT OF [address] [place] [address] PATHOLOGY AND GENOMIC MEDICINE * B natriuretic peptide (03/25/2017 10:13 AM) BNP 10 0 - 100 pg/mL [facility] DEPARTMENT OF PATHOLOGY AND GENOMIC MEDICINE Specimen Blood Performing Organization Address City/[facility]/Zipcode Phone Number [facility] DEPARTMENT OF [address] [place] [address] PATHOLOGY AND GENOMIC MEDICINE after 02/16/2017 Insurance Payer Benefit Subscriber ID Type Phone Address Plan / Group AETNA AETNA PPO xxxxxxxxxx PPO OPEN CHOICE Work: [id number] [place] [id number] Home:
--- NOTE | 2018-03-27 00:02 | Operative Report ---
DATE OF PROCEDURE: February 17, 2018 PREOPERATIVE DIAGNOSIS: Left inguinal hernia. POSTOPERATIVE DIAGNOSIS: Left inguinal hernia. OPERATION PERFORMED: Repair of left inguinal hernia with Prolene hernia system. ANESTHESIA: General. COMPLICATIONS: None. ESTIMATED BLOOD LOSS: Minimal. DESCRIPTION OF PROCEDURE: With the patient lying in bed in the supine position under good general anesthesia, the abdomen was prepped with Betadine solution and draped in the usual manner. A left inguinal incision was made, was carried down through the subcutaneous tissue down to the external oblique aponeurosis. External oblique was opened along the length of its fibers and external inguinal ring was opened. The cord was then mobilized and retracted. Exploration revealed presence of a direct hernia, which was and imbricated with a pursestring suture of 2-0 silk. The preperitoneal space was then entered right through the internal ring and a pocket was created without any difficulty. An extended Prolene hernia system was placed in the preperitoneal space and the underlay patch was deployed without any problems. The overlay patch was then placed over the floor and split inferolaterally to allow for passage of the cord. The mesh was then sutured to the conjoint tendon and the inguinal ligament using interrupted sutures of 2-0 Vicryl. The whole area was thoroughly irrigated. Perfect hemostasis was ascertained. All layers were infiltrated on the way out with solution of 0.25% Marcaine and 1% Xylocaine mixed in equal parts. The external oblique aponeurosis was then closed with a running suture of 2-0 Vicryl. The subcutaneous tissue was approximated with 3-0 plain and the skin was closed with clips. Dressing was applied. The sponge, lap, and needle count was correct. The patient tolerated the procedure well and returned to the recovery room in stable condition. Job#: [id number] VAS
== END | disposition home or self-care (01) ==
LOC: OR 07:25
PROVIDERS: ATTEND Surgery
DX: K40.90 Unilateral inguinal hernia, without obstruction or gangrene, not specified as recurrent (principal); I10 Essential (primary) hypertension; M54.9 Dorsalgia, unspecified; M54.2 Cervicalgia; K25.9 Gastric ulcer, unspecified as acute or chronic, without hemorrhage or perforation; K44.9 Diaphragmatic hernia without obstruction or gangrene; I45.10 Unspecified right bundle-branch block; F32.9 Major depressive disorder, single episode, unspecified; F41.9 Anxiety disorder, unspecified; Z88.2 Allergy status to sulfonamides
CPT/HCPCS: 36415; 49505; 80053; 85025; 93005; C1781; J1100; J1885; J2001 ×2; J2250; J2405

== ENCOUNTER → 2018-09-29 | Day surgery (SDC) | payer OTHER ==
[~2018-09-29] MED LIST changes: +ACETAMINOPHEN 1000 MG/100 ML IV ONE; +BUPROPION XL300 MG; +CALCIUM CARBON500 MG PO; +CEFOXITIN SOD 1 GM VIAL ONE; +EPHEDRINE SULFATE INJ 50 MG/10 ML SYR ONE; +FIBERCON625 MG PO; +IRON; -KETOROLAC TROMETHAMINE 30 MG/ML VIAL ONE; +MEPERIDINE HCL INJ 25 MG/ML VIAL ONE; +MONTELUKAST SOD10 MG PO; +MUCINEX DM ER1 EACH PO; +MULTI-VITAMIN1 EACH; -ONDANSETRON HCL INJ 2 MG/ML VIAL ONE; +ONDANSETRON HCL INJ 2MG/ML 2ML 2 MG/ML VIAL ONE; +PSEUDOEPHEDRINE30 MG PO; +VITAMIN B12; +VITAMIN C; +VITAMIN D3
--- OUTSIDE RECORDS SUMMARY | 2018-09-29 09:23 | XMS REPORT | Clinical Summary ---
Author Author [facility] Organization [facility] Address Unknown Phone Unavailable Care Team Providers Care Roving Or Yarn Color Checker Name Role Phone Isra Bernstein MD PCP Allergies Comments Active Allergy Reactions Severity Noted Date "His face peels" Ibuprofen Other (See 03/11/2016 Comments) Severe vomiting Sulfa (Sulfonamide GI 03/11/2016 Antibiotics) Intolerance Medications End Date Status Medication Sig Dispensed Refills Start Date Active potassium chloride Take 20 mEq 4 (K-DUR) 20 MEQ CR tablet by mouth 6 daily. Active cetirizine (ZyrTEC) 10 MG Take 10 mg by 0 tablet mouth daily. Active loratadine (CLARITIN) 10 Take 10 mg by 0 mg tablet mouth daily as needed for allergies. Active buPROPion XL (WELLBUTRIN Take 300 mg 0 XL) 300 MG 24 hr tablet by mouth daily. Active FLUoxetine (PROzac) 20 MG Take 60 mg by 0 capsule mouth daily. Active hydroCHLOROthiazide Take 25 mg by 0 (HYDRODIURIL) 25 MG mouth daily. tablet Active irbesartan (AVAPRO) 300 Take 300 mg 0 MG tablet by mouth daily. Active traMADol (ULTRAM) 50 mg tramadol 50 0 tablet mg tablet TAKE ONE (1) TABLET(S) BY MOUTH EVERY SIX HOURS NEEDED PAIN 30 DAYS. 01/20/2018 Discontinued valsartan-hydrochlorothia Take 1 tablet 0 zide (DIOVAN HCT) 320-25 by mouth mg per tablet daily. 01/20/2018 Discontinued montelukast (SINGULAIR) Take 10 mg by 0 10 mg tablet mouth nightly as needed. 01/23/2018 Discontinued dicyclomine (BENTYL) 20 Take 20 mg by 0 mg tablet mouth 3 (three) times a day. [Currently ON HOLD per MD since ~1 week] 01/23/2018 Discontinued hyoscyamine (LEVBID) Take 0.375 mg 0 0.375 mg 12 hr tablet by mouth every 12 (twelve) hours as needed. [Currently ON HOLD per MD since ~1 week] 01/21/2018 Discontinued pantoprazole (PROTONIX) Take 40 mg by 0 40 MG EC tablet mouth daily. 02/20/2018 pantoprazole (PROTONIX) Take 1 tablet 60 tablet 0 40 MG EC tablet (40 mg total) 8 by mouth 2 (two) times a day for 30 days. 02/20/2018 ondansetron (ZOFRAN) 4 MG Take 1 tablet 20 tablet 0 tablet (4 mg total) 8 by mouth every 8 (eight) hours as needed for nausea or [...] discuss this option with Dr. 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 Epigastric pain 01/20/2018 Gastric bypass status for obesity 04/14/2017 Last Assessment & Plan: The patient [place] RY[place] [address] Bennett and is advised to return for routine bariatric follow-up. Status post laparoscopy 03/29/2017 Last Assessment & Plan: The patient is s/p laparoscopic closure and Woody patch of perforated duodenal ulcer. He is doing well. H.pylori was negative and cultures showed no growth. He has completed Augmentin. He is instructed to avoid NSAIDS for the rest of his life, as he is s/p RYGB. He will continue Protonix BID x 6 weeks, then once daily x 6 months. Perforated viscus 03/25/2017 Diabetes mellitus 04/27/2016 Essential hypertension 04/27/2016 Morbid obesity 04/27/2016 Exomphalos 04/27/2016 Encounters Care Team Description Date Type Specialty Brandi Porter MA Follow Up 02/14/2018 Documentation General Surgery Mu Zapien MD LLQ pain (Primary Dx) 2018 Office Visit General Surgery Mu Zapien MD 2018 Telephone General Surgery Mu Zapien MD LLQ abdominal pain 02/03/2018 Hospital Radiology Encounter Isra Bernstein III, MD Gall bladder disease 01/31/2018 Hospital Radiology Encounter Mu Zapien MD LLQ abdominal pain (Primary Dx) 01/27/2018 Orders Only General Surgery Mu Zapien MD 01/26/2018 Orders Only General Surgery Mu Zapien MD 01/24/2018 Hospital Radiology Encounter Mu Zapien MD Left lower quadrant pain (Primary Dx) 01/23/2018 Office Visit General Surgery Loida Hill MD Boyareddigari, Prasanth R., MD Morris, Lee M., MD Epigastric pain (Primary Dx) 01/20/2018 Emergency General Surgery - 01/21/2018 Isra Bernstein III, MD Gall bladder disease (Primary Dx) 01/19/2018 Transcribe Access Orders after 09/28/2017 Family History Medical History Relation Name Comments [...] Grandfather Paternal Grandmother Sister Alive Social History Date Tobacco Use Types Packs/Day Years Used Never Smoker Smokeless Tobacco: Never Used Alcohol Use Drinks/Week oz/Week Comments No Sex Assigned at Date Recorded Not on file Industry Job Start Date Occupation Not on file Not on file Not on file Travel End Travel History Travel Start No recent travel history available. Last Filed Vital Signs Time Taken Vital Sign Reading 2018 2:39 PM CDT Blood Pressure 124/81 2018 2:39 PM CDT Pulse 85 2018 2:39 PM CDT Temperature 36.6 C (97.8 F) 2018 2:39 PM CDT Respiratory Rate 16 01/21/2018 12:06 PM CDT Oxygen Saturation 100% - Inhaled Oxygen - Concentration 2018 2:39 PM CDT Weight 104 kg (230 lb 3.2 oz) 2018 2:39 PM CDT Height 182.9 cm (6') 2018 2:39 PM CDT Body Mass Index 31.22 Plan of Treatment Health Maintenance Due Date Last Done Comments DIABETIC RETINAL EYE EXAM 1960 DIABETIC FOOT EXAM 02/08/1970 URINE MICROALBUMIN 02/08/1970 COLON CANCER SCREENING 02/08/2010 SHINGLES VACCINES (#1) 02/08/2010 INFLUENZA VACCINE 12/28/2018 Implants Device Identifier Shelf Expiration Date Model / Serial / Lot Implanted Type Area Manufactur er 12/27/2021 [id number] / / [id number] Drain Wnd Chnl 15fr 3/16in Rnd Surgical N/A: Abdomen BARD Fl-Flut Yusra - [id number] Implants; MEDICAL Implanted: Qty: 1 on 03/25/2017 by [employer]; DIVISION Mu Zapien MD Extenders; Surgical Wires Procedures Comments Procedure Name Priority Date/Time Associated Diagnosis CT ENTEROGRAPHY Routine 02/03/2018 LLQ abdominal pain 1:39 PM CDT NM HEPATOBILIARY W PHARM Routine 01/31/2018 Gall bladder disease 2:54 PM CDT FOLATE LEVEL Routine 01/21/2018 4:00 AM CDT VITAMIN B12 LEVEL Routine 01/21/2018 4:00 AM CDT LACTIC ACID LEVEL, SEPSIS Timed 01/20/2018 - NOW AND REPEAT 2X EVERY 12:13 PM CDT 3 HOURS US GALLBLADDER STAT 01/20/2018 8:30 AM CDT URINALYSIS SCREEN AND STAT 01/20/2018 MICROSCOPY, WITH REFLEX 7:10 AM CDT TO CULTURE URINE CULTURE STAT 01/20/2018 7:10 AM CDT LIPASE LEVEL STAT 01/20/2018 3:20 AM CDT ZZESTIMATED GFR STAT 01/20/2018 3:20 AM CDT MAGNESIUM LEVEL STAT 01/20/2018 3:20 AM CDT PHOSPHORUS LEVEL STAT 01/20/2018 3:20 AM CDT LACTIC ACID LEVEL, SEPSIS STAT 01/20/2018 - NOW AND REPEAT 2X EVERY 3:20 AM CDT 3 HOURS COMPREHENSIVE METABOLIC STAT 01/20/2018 PANEL 3:20 AM CDT HC COMPLETE BLD COUNT STAT 01/20/2018 W/AUTO DIFF 3:[address] ABD/PELVIC EXTERNAL Routine 01/17/2018 STUDY 11:30 AM CDT after 09/28/2017 Results * CT Enterography (02/03/2018 1:39 PM CDT) Narrative Performed At EXAMINATION:CT ENTEROGRAPHY [facility] CLINICAL HISTORY:R10.32 Left lower quadrant pain, [...] quality image COMPARISON:Outside CT 17 January 2018[facility] CT scan 25 March 2017 IMPRESSION: Abdomen: [...] which contains only omental fat without inflammation. [id number] Procedure Note Hm Interface, Radiology Results Incoming [...] image COMPARISON: Outside CT 17 January 2018, [facility] CT scan 25 March 2017 IMPRESSION: Abdomen: [...] which contains only omental fat without inflammation. [id number] Performing Organization Address City/State/Zipcode Phone Number [facility] [address] [place] [address] * NM Hepatobiliary W Pharm (HIDA Scan w Pharm) (01/31/2018 2:54 PM CDT) Narrative Performed At PROCEDURE:NM HEPATOBILIARY W PHARM (HIDA SCAN W PHARM) [facility] INDICATION: Gallbladder disease. TECHNIQUE: The patient was [...] interfering loops of small bowel. 2.Enterogastric reflux. [id number] Procedure Note [facility], Radiology Results Incoming - 01/31/2018 5:34 PM CDT PROCEDURE: NM HEPATOBILIARY W PHARM (HIDA SCAN W PHARM) [...] loops of small bowel. 2. Enterogastric reflux. [id number] Performing Organization Address [facility] [place] [address] * Folate level (01/21/2018 4:00 AM CDT) Folate 15.6 4.8 - 24.2 ng/mL [facility] DEPARTMENT OF PATHOLOGY AND GENOMIC MEDICINE Specimen Serum Performing Organization Address [facility] [place] [address] PATHOLOGY AND GENOMIC MEDICINE * Vitamin B12 level (01/21/2018 4:00 AM CDT) Vitamin B12 >1600 (H) 211 - 946 pg/mL [facility] DEPARTMENT OF Comment: PATHOLOGY AND Significant overlap exists GENOMIC MEDICINE between normal and deficiency states. However, most patients with deficiencies will have Serum B12 <200 pg/mL. Specimen Serum Performing Organization Address [facility]/[place] [address] PATHOLOGY AND GENOMIC MEDICINE * Lactic acid level, SEPSIS - Now and repeat 2x every 3 hours (01/20/2018 12:13 PM CDT) Only the most recent of 2 results within the time period is included. Lactic acid 0.9 0.5 - 2.2 mmol/L [facility] DEPARTMENT OF PATHOLOGY AND GENOMIC MEDICINE Specimen Blood Performing Organization Address City/State/Zipcode Phone Number [facility] DEPARTMENT OF [address] [place] [phone] PATHOLOGY AND GENOMIC MEDICINE * US Gallbladder (01/20/2018 8:30 AM CDT) Narrative Performed At Gallbladder ultrasound, 01/20/2018 8:31 AM [facility] Clinical history: Unspecified abdominal pain Comparison: None [...] evidence of acute cholecystitis. Performing Organization Address City/[facility]/Zipcode Phone Number [facility] [address] [place] [address] * Urinalysis screen and microscopy, with reflex to culture (01/20/2018 7:10 AM CDT) Specimen site Clean catch [facility] DEPARTMENT OF PATHOLOGY AND GENOMIC MEDICINE Color, UA Yellow [facility] DEPARTMENT OF PATHOLOGY AND GENOMIC MEDICINE Appearance, UA Clear [facility] DEPARTMENT OF PATHOLOGY AND GENOMIC MEDICINE Specific gravity, UA 1.019 1.001 - 1.035 [facility] DEPARTMENT OF PATHOLOGY AND GENOMIC MEDICINE pH, UA 5.0 5.0 - 8.5 [facility] DEPARTMENT OF PATHOLOGY AND GENOMIC MEDICINE Protein, UA Negative Negative [facility] DEPARTMENT OF PATHOLOGY AND GENOMIC MEDICINE Glucose, UA 1+ (A) Negative [facility] DEPARTMENT OF Comment: PATHOLOGY AND UGLU/UKET results called to [facility] and read back by BJORN GONSALES/YONI (name/location) at01/20/201807:49 ___ (date/time) by DB__. Ketones, UA 1+ (A) Negative [facility] DEPARTMENT OF PATHOLOGY AND GENOMIC MEDICINE Bilirubin, UA Negative Negative [facility] DEPARTMENT OF PATHOLOGY AND GENOMIC MEDICINE Blood, UA Negative Negative [facility] DEPARTMENT OF PATHOLOGY AND GENOMIC MEDICINE Nitrite, UA Negative Negative [facility] DEPARTMENT OF PATHOLOGY AND GENOMIC MEDICINE Urobilinogen, UA <2.0 <2.0 [facility] DEPARTMENT OF PATHOLOGY AND GENOMIC MEDICINE Leukocyte esterase, UA Negative Negative [facility] DEPARTMENT OF PATHOLOGY AND GENOMIC MEDICINE Epithelial cells, UA 3 /HPF [facility] DEPARTMENT OF PATHOLOGY AND GENOMIC MEDICINE Round epithelial cells, <1 0 - 1 /HPF [facility] DEPARTMENT OF UA PATHOLOGY AND GENOMIC MEDICINE WBC, UA 2 (H) 0 - 1 /HPF [facility] DEPARTMENT OF PATHOLOGY AND GENOMIC MEDICINE RBC, UA 1 0 - 5 /HPF [facility] DEPARTMENT OF PATHOLOGY AND GENOMIC MEDICINE Bacteria, UA None seen None seen [facility] DEPARTMENT OF PATHOLOGY AND GENOMIC MEDICINE Yeast, UA None seen [facility] DEPARTMENT OF PATHOLOGY AND GENOMIC MEDICINE Yeast with pseudohyphae, None seen [facility] DEPARTMENT UA PATHOLOGY AND GENOMIC MEDICINE Hyaline casts, UA 10 /LPF [facility] DEPARTMENT OF PATHOLOGY AND GENOMIC MEDICINE Specimen Urine Performing Organization Address City/[facility]/[place] [address] PATHOLOGY AND GENOMIC MEDICINE * Urine culture (01/20/2018 7:10 AM CDT) Urine culture SEE COMMENTComment: [facility] DEPARTMENT OF Bacteriuria screen negative. PATHOLOGY AND GENOMIC MEDICINE Performing Organization Address City/[facility] [place] [address] PATHOLOGY AND GENOMIC MEDICINE * Estimated GFR (01/20/2018 3:20 AM CDT) GFR Non Af Amer 69 mL/min/1.73 m2 [facility] DEPARTMENT OF PATHOLOGY AND GENOMIC MEDICINE GFR Af Amer 83 mL/min/1.73 m2 [facility] DEPARTMENT OF Comment: PATHOLOGY AND Chronic [...] Americans. Specimen Plasma specimen Performing Organization Address City/[facility]/[place] [address] PATHOLOGY AND GENOMIC MEDICINE * CBC with platelet and differential (01/20/2018 3:20 AM CDT) WBC 10.51 4.50 - 11.00 k/uL [facility] DEPARTMENT OF PATHOLOGY AND GENOMIC MEDICINE RBC 4.56 4.40 - 6.00 m/uL [facility] DEPARTMENT OF PATHOLOGY AND GENOMIC MEDICINE HGB 13.0 (L) 14.0 - 18.0 g/dL [facility] DEPARTMENT OF PATHOLOGY AND GENOMIC MEDICINE HCT 39.3 (L) 41.0 - 51.0 % [facility] DEPARTMENT OF PATHOLOGY AND GENOMIC MEDICINE MCV 86.2 82.0 - 100.0 fL [facility] DEPARTMENT OF PATHOLOGY AND GENOMIC MEDICINE MCH 28.5 27.0 - 34.0 pg [facility] DEPARTMENT OF PATHOLOGY AND GENOMIC MEDICINE MCHC 33.1 31.0 - 37.0 g/dL [facility] DEPARTMENT OF PATHOLOGY AND GENOMIC MEDICINE RDW - SD 38.9 37.0 - 55.0 fL [facility] DEPARTMENT OF PATHOLOGY AND GENOMIC MEDICINE MPV 9.6 8.8 - 13.2 fL [facility] DEPARTMENT OF PATHOLOGY AND GENOMIC MEDICINE Platelet count 222 150 - 400 k/uL [facility] DEPARTMENT OF PATHOLOGY AND GENOMIC MEDICINE Nucleated RBC 0.00 /100 WBC [facility] DEPARTMENT OF PATHOLOGY AND GENOMIC MEDICINE Neutrophils 80.3 (H) 39.0 - 69.0 % [facility] DEPARTMENT OF PATHOLOGY AND GENOMIC MEDICINE Lymphocytes 7.6 (L) 25.0 - 45.0 % [facility] DEPARTMENT OF PATHOLOGY AND GENOMIC MEDICINE Monocytes 10.2 (H) 0.0 - 10.0 % [facility] DEPARTMENT OF PATHOLOGY AND GENOMIC MEDICINE Eosinophils 1.2 0.0 - 5.0 % [facility] DEPARTMENT OF PATHOLOGY AND GENOMIC MEDICINE Basophils 0.3 0.0 - 1.0 % [facility] DEPARTMENT OF PATHOLOGY AND GENOMIC MEDICINE Immature granulocytes 0.4Comment: "Immature 0.0 - 1.0 % [facility] DEPARTMENT OF granulocytes" (promyelocytes, PATHOLOGY AND myelocytes, metamyelocytes) GENOMIC MEDICINE Specimen Blood Performing Organization Address City/[facility]/Zipcode Phone Number [place] [phone] [place] [address] PATHOLOGY AND GENOMIC MEDICINE * Phosphorus level (01/20/2018 3:20 AM CDT) Phosphorus 1.4 (L) 2.4 - 4.5 mg/dL [facility] DEPARTMENT OF PATHOLOGY AND GENOMIC MEDICINE Specimen Plasma specimen Performing Organization Address City/State/[place] [address] PATHOLOGY AND GENOMIC MEDICINE * Magnesium level (01/20/2018 3:20 AM CDT) Magnesium 2.0 1.6 - 2.6 mg/dL [facility] DEPARTMENT OF PATHOLOGY AND GENOMIC MEDICINE Specimen Plasma specimen Performing Organization Address City/[facility] [place] [address] PATHOLOGY AND GENOMIC MEDICINE * Lipase level (01/20/2018 3:20 AM CDT) Lipase 58 13 - 60 U/L [facility] DEPARTMENT OF PATHOLOGY AND GENOMIC MEDICINE Specimen Plasma specimen Performing Organization Address [facility] [place] [address] PATHOLOGY AND GENOMIC MEDICINE * Comprehensive metabolic panel (01/20/2018 3:20 AM CDT) Sodium 135 135 - 148 mEq/L [facility] DEPARTMENT OF PATHOLOGY AND GENOMIC MEDICINE Potassium 4.0 3.5 - 5.0 mEq/L [facility] DEPARTMENT OF PATHOLOGY AND GENOMIC MEDICINE Chloride 95 (L) 98 - 112 mEq/L [facility] DEPARTMENT OF PATHOLOGY AND GENOMIC MEDICINE CO2 26 24 - 31 mEq/L [facility] DEPARTMENT OF PATHOLOGY AND GENOMIC MEDICINE Anion gap 14@ANIO 7 - 15 mEq/L [facility] DEPARTMENT OF PATHOLOGY AND GENOMIC MEDICINE BUN 14 6 - 20 mg/dL [facility] DEPARTMENT OF PATHOLOGY AND GENOMIC MEDICINE Creatinine 1.1 0.7 - 1.2 mg/dL [facility] DEPARTMENT OF PATHOLOGY AND GENOMIC MEDICINE Glucose 125 (H) 65 - 99 mg/dL [facility] DEPARTMENT OF PATHOLOGY AND GENOMIC MEDICINE Calcium 9.2 8.3 - 10.2 mg/dL [facility] DEPARTMENT OF PATHOLOGY AND GENOMIC MEDICINE Protein 6.8 6.3 - 8.3 g/dL [facility] DEPARTMENT OF Comment: PATHOLOGY AND GENOMIC MEDICINE 4.6-7.0 g/dL 1 week 4.4-7.6 g/dL 7 months-1year 5.1-7.3 g/dL 1-2 years5.6-7 .5 g/dL >3 years6.0-8 .0 g/dL 18-150 6.3-8.3 g/dL Albumin 3.3 (L) 3.5 - 5.0 g/dL [facility] DEPARTMENT OF PATHOLOGY AND GENOMIC MEDICINE A/G ratio 0.9 0.7 - 3.8 [facility] DEPARTMENT OF PATHOLOGY AND GENOMIC MEDICINE Alkaline phosphatase 102 40 - 129 U/L [facility] DEPARTMENT OF PATHOLOGY AND GENOMIC MEDICINE AST 18 10 - 50 U/L [facility] DEPARTMENT OF PATHOLOGY AND GENOMIC MEDICINE ALT 11 5 - 50 U/L [facility] DEPARTMENT OF PATHOLOGY AND GENOMIC MEDICINE Total bilirubin 0.3 0.0 - 1.2 mg/dL [facility] DEPARTMENT OF PATHOLOGY AND GENOMIC MEDICINE Specimen Plasma specimen Performing Organization Address City/State/Zipcode Phone Number [facility] DEPARTMENT OF [address] [place] [phone] PATHOLOGY AND GENOMIC MEDICINE * CT Abd/Pelvic External Study (01/17/2018 11:30 AM CDT) Narrative Performed At This exam was not acquired at a [facility] facility and has not been [facility] interpreted by a [facility] Provider.The exam was imported into our imaging system for comparisons purposes. Performing Organization Address City/[facility] Phone Number [facility] [address] [place] [phone] after 09/28/2017 Insurance Payer Benefit Subscriber ID Type Phone Address Plan / Group AETNA AETNA PPO xxxxxxxxxx PPO OPEN CHOICE Advance Directives Patient has advance care planning documents on file. For more information, susan ruby contact: Darius Mueller [address] [place] [phone]
--- OUTSIDE RECORDS SUMMARY | 2018-09-29 09:24 | XMS REPORT | Encounter Summary ---
Author Organization Unknown Address [address] [place] [address] Phone [phone] Reason for Visit Medical Complaint Instructions 1. Dysfunction of eustachian tube eustachian tube problems: care instructions Medrol (Zaid) 4 mg tablets in a dose pack 2. Body mass index 30+ - obesity body mass index: care instructions learning about healthy weight 3. Influenza immunization advised Discussion Note: None recorded. Plan of Care Patient Instructions The eustachian (say "baf-YLZT-[id number]") tubes run between the inside of the ears and the throat. They keep air pressure stable in the ears. If your eustachian tubes become blocked, the air pressure in your ears changes. The fluids from a cold can clog eustachian tubes, causing pain in the ears. A quick change in air pressure can cause eustachian tubes to close up. This might happen when an airplane changes altitude or when a french cord binder goes up or down underwater. Eustachian tube problems often clear up on their own or after antibiotic treatment. If your tubes continue to be blocked, you may need surgery. Follow-up care is a barbosa part of your treatment and safety. Be sure to make and go to all appointments, and call your doctor if you are having problems. It's also a good idea to know your test results and keep a list of the medicines you take. How can you care for yourself at home? To ease ear pain, apply a warm washcloth or a heating pad set on low. There may be some drainage from the ear when the heat melts earwax. Put a cloth between the heat source and your skin. Do not use a heating pad with children. If your doctor prescribed antibiotics, take them as directed. Do not stop taking them just because you feel better. You need to take the full course of antibiotics. Your doctor may recommend mkgz-dyj-wnmphbh medicine. Be safe with medicines. Oral or nasal decongestants may relieve ear pain. Avoid decongestants that are combined with antihistamines, which tend to cause more blockage. But if allergies seem to be the problem, your doctor may recommend a combination. Be careful with cough and cold medicines. Don't give them to children younger than 6, because they don't work for children that age and can even be harmful. For children 6 and older, always follow all the instructions carefully. Make sure you know how much medicine to give and how long to use it. And use the dosing device if one is included. When should you call for help? Call your doctor now or seek immediate medical care if: You develop sudden, complete hearing loss. You have severe pain or feel dizzy. You have new or increasing pus or blood draining from your ear. You have redness, swelling, or pain around or behind the ear. Watch closely for changes in your health, and be sure to contact your doctor if: You do not get better after 2 weeks. You have any new symptoms, such as itching or a feeling of fullness in the ear. Reminders Provider Appointments None recorded. Lab None recorded. Referral None recorded. Procedures None recorded. Surgeries None recorded. Imaging None recorded. Medications Name Start Date bupropion HCl XL 300 mg 24 hr tablet, extended release TAKE 1 TABLET BY MOUTH EVERY DAY Chlor-Trimeton Ciprodex 0.3 %-0.1 % ear drops,suspension INSTILL 4 DROPS INTO AFFECTED EAR(S) BY OTIC ROUTE 2 TIMES PER DAY FOR 7 DAYS Claritin dicyclomine 20 mg tablet TAKE 2 TABLET BY MOUTH THREE TIMES A DAY fluoxetine 20 mg capsule TAKE THREE CAPSULES BY MOUTH ONCE DAILY hydrochlorothiazide 25 mg tablet TAKE 1 TABLET BY MOUTH EVERY DAY hyoscyamine ER 0.375 mg tablet,extended release,12 hr TAKE 1 TABLET BY MOUTH TWICE A DAY irbesartan 300 mg tablet TAKE 1 TABLET DAILY- SUBSTITUTION FOR VALSARTAN Medrol (Zaid) 4 mg tablets in a dose pack Take 1 dose pk by oral route. montelukast 10 mg tablet TAKE 1 TABLET BY MOUTH NIGHTLY AT BEDTIME ondansetron HCl 4 mg tablet TAKE 1 TABLET BY MOUTH EVERY 8 HOURS NEEDED FOR NAUSEA AND VOMITING FOR UP TO 30 DAYS pantoprazole 40 mg tablet,delayed release TAKE 1 TABLET BY MOUTH EVERY DAY potassium chloride ER 20 mEq tablet,extended release(part/cryst) TAKE ONE TABLET BY MOUTH ONE TIME DAILY Prozac valsartan 320 mg-hydrochlorothiazide 25 mg tablet TAKE 1 TABLET BY MOUTH ONCE A DAY Zyrtec Medications Administered None recorded. Vitals Height Weight BMI Blood Pressure 6 ft 240 lbs 32.5 kg/m2 118/78 mm[Hg] Lab Results None recorded. Allergies Code Code System Name Reaction Severity Status Onset Sulfa (Sulfonamide Antibiotics) Nausea Active Vomiting Active Problems Name Status Onset Date Source Anxiety Disorder Active 07/25/2018 Acute Suppurative Otitis Media without Spontaneous Rupture of Ear Drum Active Encounter Allergic Rhinitis Active Encounter Elevated Blood-pressure Reading without Diagnosis of Hypertension Active Encounter Procedures None recorded. Vaccine List None recorded. Social History Smoking Status Never Smoker Past Encounters 07/25/2018 Dysfunction of Eustachian Tube; Body Mass Index 30+ - Obesity; Influenza Immunization Advised ASHTYN Sanchez-C: [address] [place] [address], Ph. History of Present Illness Ear Complaint Reported By: Patient HPI: Location: right. Quality: ears feel full/plugged. Context: no sick contacts, no recent swimming/water in ear, no exposure to second hand smoke, no head trauma, not grinding teeth, no recent air travel. Modifying factors: does not hurt to lie on, or pull on ear, does not hurt to chew. Associated Symptoms: no discharge from the ears, no ringing in the ears, no fever, no chills, no dizziness, no vertigo, no headache, no muscle aches, nose/sinus problems, popping noise in the ears, earache Review of Systems:ROS as noted in the HPI Review of Systems Basic Reported By: Patient Physical Exam Adult Basic, Adult Male Complete Reported By: Patient Constitutional: General Appearance: obese. Level of Distress: NAD. Ambulation: ambulating normally Psychiatric: Mental Status: active and alert. Orientation: to time, to place, to person Fdc-Pyup-Awqnq-Throat: Ears: no lesions on external ear, no outer ear tenderness, EACs clear, TMs clear, middle ear fluid. Hearing: no hearing loss. Nose: no lesions on external nose, nares patent, no septal deviation, nasal passages clear, no sinus tenderness, no nasal discharge. Lips, Teeth, and Gums: no mouth or lip ulcers, no bleeding gums, normal dentition. Oropharynx: moist mucous membranes, no erythema, no exudates, tonsils not enlarged Lungs: Respiratory effort: no dyspnea, no tachypnea, no use of accessory muscles, no intercostal retractions. Auscultation: breath sounds normal, good air movement Cardiovascular: Heart Auscultation: RRR, no murmurs
--- OUTSIDE RECORDS SUMMARY | 2018-09-29 09:24 | XMS REPORT | Continuity of Care Document ---
Author Author [facility] Interface Address Unknown Phone Unavailable Problems Problem Status Onset Date Classification Date Reported Comments Source Elevated blood pressure 09/08/2018 Diagnosis 09/08/2018 [facility] Body mass index 30+ - obesity 09/08/2018 Diagnosis 09/08/2018 [facility] Abscess of buttock 09/08/2018 Diagnosis 09/08/2018 [facility] Influenza immunization advised 07/25/2018 Diagnosis 07/25/2018 [facility] Dysfunction of eustachian tube 07/25/2018 Diagnosis 07/25/2018 [facility] Anxiety Disorder 07/25/2018 Problem 09/08/2018 [facility] Elevated blood-pressure reading without diagnosis of hypertension 08/30/2017 Diagnosis 08/30/2017 [facility] Otitis externa 08/30/2017 Diagnosis 08/30/2017 [facility] Acute suppurative otitis media without spontaneous rupture of ear drum 08/30/2017 Diagnosis 08/30/2017 [facility] Acute sinusitis 12/29/2016 Diagnosis 12/29/2016 [facility] Acute Suppurative Otitis Media without Spontaneous Rupture of Ear Drum Problem 09/08/2018 [facility] Allergic Rhinitis Problem 09/08/2018 [facility] Elevated Blood-pressure Reading without Diagnosis of Hypertension Problem 09/08/2018 [facility] Acute Sinusitis Problem 12/29/2016 [facility] Medications Medication Details Route Status Patient Instructions Ordering Provider Order Date Source 24 HR Bupropion Hydrochloride 300 MG Extended Release Oral Tablet bupropion HCl XL 300 mg 24 hr tablet, extended release TAKE 1 TABLET BY MOUTH EVERY DAY Active [facility] Chlor-Trimeton Chlor-Trimeton Active [facility] Ciprofloxacin 3 MG/ML / Dexamethasone 1 MG/ML Otic Suspension [Ciprodex] Ciprodex 0.3 %-0.1 % ear drops,suspension INSTILL 4 DROPS INTO AFFECTED EAR(S) BY OTIC ROUTE 2 TIMES PER DAY FOR 7 DAYS Active [facility] Claritin Claritin Active [facility] Dicyclomine Hydrochloride 20 MG Oral Tablet dicyclomine 20 mg tablet TAKE 2 TABLET BY MOUTH THREE TIMES A DAY Active [facility] Fluoxetine 20 MG Oral Capsule fluoxetine 20 mg capsule TAKE THREE CAPSULES BY MOUTH ONCE DAILY Active [facility] Hydrochlorothiazide 25 MG Oral Tablet hydrochlorothiazide 25 mg tablet TAKE 1 TABLET BY MOUTH EVERY DAY Active [facility] 12 HR Hyoscyamine Sulfate 0.375 MG Extended Release Oral Tablet hyoscyamine ER 0.375 mg tablet,extended release,12 hr TAKE 1 TABLET BY MOUTH TWICE A DAY Active [facility] irbesartan 300 MG Oral Tablet irbesartan 300 mg tablet TAKE 1 TABLET DAILY- SUBSTITUTION FOR VALSARTAN Active [facility] Medrol (Zaid) 4 mg tablets in a dose pack Medrol (Zaid) 4 mg tablets in a dose pack Take 1 dose pk by oral route. Active [facility] montelukast 10 MG Oral Tablet montelukast 10 mg tablet TAKE 1 TABLET BY MOUTH NIGHTLY AT BEDTIME Active [facility] Ondansetron 4 MG Oral Tablet ondansetron HCl 4 mg tablet TAKE 1 TABLET BY MOUTH EVERY 8 HOURS NEEDED FOR NAUSEA AND VOMITING FOR UP TO 30 DAYS Active [facility] pantoprazole 40 MG Delayed Release Oral Tablet pantoprazole 40 mg tablet,delayed release TAKE 1 TABLET BY MOUTH EVERY DAY Active [facility] Microencapsulated Potassium Chloride 20 MEQ Extended Release Oral Tablet potassium chloride ER 20 mEq tablet,extended release(part/cryst) TAKE ONE TABLET BY MOUTH ONE TIME DAILY Active [facility] Prozac Prozac Active [facility] Hydrochlorothiazide 25 MG / valsartan 320 MG Oral Tablet valsartan 320 mg-hydrochlorothiazide 25 mg tablet TAKE 1 TABLET BY MOUTH ONCE A DAY Active [facility] Zyrtec Zyrtec Active [facility] Alendronic acid 70 MG Oral Tablet alendronate 70 mg tablet TAKE 1 TABLET BY MOUTH ONCE A WEEK Active [facility] Amoxicillin 875 MG / Clavulanate 125 MG Oral Tablet [Augmentin] Augmentin 875 mg-125 mg tablet Take 1 tablet every 12 hours by oral route as directed for 7 days. Active [facility] Fluticasone propionate 0.05 MG/ACTUAT Metered Dose Nasal [place] fluticasone 50 mcg/actuation nasal spray,suspension One spray each nostril bid x 7 days, then one spray each nostril daily x 7 days. Active [facility] Amoxicillin 875 MG / Clavulanate 125 MG Oral Tablet amoxicillin 875 mg-potassium clavulanate 125 mg tablet Take 1 tablet every 12 hours by oral route with meals for 7 days. Active [facility] benzonatate 200 MG Oral Capsule benzonatate 200 mg capsule Take 1 capsule 3 times a day by oral route as needed. Active [facility] Ciprofloxacin 500 MG Oral Tablet ciprofloxacin 500 mg tablet TAKE 1 TABLET BY MOUTH TWICE A DAY Active [facility] Dicyclomine Hydrochloride 10 MG Oral Capsule dicyclomine 10 mg capsule TAKE 1 CAPSULE (10 MG TOTAL) BY MOUTH 2 (TWO) TIMES A DAY. Active [facility] Flonase Flonase Active [facility] methylprednisolone 4 mg tablets in a dose pack methylprednisolone 4 mg tablets in a dose pack TAKE DIRECTED. Active [facility] Metronidazole 500 MG Oral Tablet metronidazole 500 mg tablet TAKE 1 TABLET BY MOUTH 3 TIMES A DAY. DO NOT DRINK ALCOHOL WHILE TAKING Active [facility] Suprep Bowel Prep Kit 17.5 gram-3.13 gram-1.6 gram oral solution Suprep Bowel Prep Kit 17.5 gram-3.13 gram-1.6 gram oral solution USE DIRECTED BY PHYSICIAN INSTRUCTIONS Active [facility] tramadol hydrochloride 50 MG Oral Tablet tramadol 50 mg tablet TAKE ONE (1) TABLET(S) BY MOUTH EVERY SIX HOURS NEEDED PAIN 30 DAYS. Active [facility] Hydrochlorothiazide 12.5 MG / valsartan 320 MG Oral Tablet valsartan 320 mg-hydrochlorothiazide 12.5 mg tablet TAKE 1 TABLET BY MOUTH DAILY Active [facility] Cephalexin 500 MG Oral Capsule [Keflex] Keflex 500 mg capsule Take 1 capsule twice a day by oral route for 10 days. Active [facility] 0.5 ML Varicella zoster virus glycoprotein E, recombinant 0.1 MG/ML Injection [Shingrix] Shingrix (PF) 50 mcg/0.5 mL intramuscular suspension, kit TO BE ADMINISTERED BY PHARMACIST FOR IMMUNIZATION Active [facility] Allergies, Adverse Reactions, Alerts Substance Category Reaction Severity Reaction type Status Date Reported Comments Source Sulfa (Sulfonamide Antibiotics) Nausea Allergy to substance 06/19/2009 [facility] Immunizations Immunization Date Given Site Status Last Updated Comments Source Results Order Name Results Value Reference Range Date Interpretation Comments Source Vital Signs Vital Sign Value Date Comments Source Diastolic (mm Hg) 80 09/08/2018 [facility] Height 72 09/08/2018 [facility] Systolic (mm Hg) 117 09/08/2018 [facility] Weight 238 09/08/2018 [facility] Diastolic (mm Hg) 78 07/25/2018 [facility] Height 72 07/25/2018 [facility] Systolic (mm Hg) 118 07/25/2018 [facility] Weight 240 07/25/2018 [facility] Diastolic (mm Hg) 85 08/30/2017 [facility] Height 72 08/30/2017 [facility] Systolic (mm Hg) 135 08/30/2017 [facility] Weight 238 08/30/2017 [facility] Diastolic (mm Hg) 90 12/29/2016 [facility] Height 72 12/29/2016 [facility] Systolic (mm Hg) 140 12/29/2016 [facility] Weight 250 12/29/2016 [facility] Encounters Location Location Details Encounter Type Encounter Number Reason For Visit Attending Provider ADM Date DC Date Status Source [place] - [facility] - [id number] Le Zaldivar, 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 [id number] Le Zaldivar 12/29/2016 [facility] [place] - [facility] - [id number] David Ortiz, BOX ATTACHER-C: [address] [place] [address], Ph. [id number] [facility]2017 [facility] [place] [facility] - [id number] David Ortiz BOX ATTACHER-C: [address] [place] [address], Ph. [id number] David Ortiz 08/30/2017 [facility] [place] - [facility] - [id number] Michell Fernandez BOX ATTACHER-C: [address] [place] [address], Ph. [id number] Michell Fernandez 07/25/2018 [facility] [place] - [facility] - [id number] Fernandez, [facility]: [address], [place], [place] [address], Ph. [id number] Michell Fernandez 09/08/2018 [facility] Procedures Procedure Code Date Perfomer Comments Source
--- OUTSIDE RECORDS SUMMARY | 2018-09-29 09:24 | XMS REPORT | Encounter Summary ---
Author Organization Unknown Address [address] [place] [address] Phone [phone] Reason for Visit Medical Complaint Instructions 1. Abscess of buttock Keflex 500 mg capsule skin abscess: care instructions 2. Body mass index 30+ - obesity body mass index: care instructions learning about healthy weight 3. Elevated blood pressure elevated blood pressure: care instructions dash diet: care instructions blood pressure monitoring education Discussion Note: None recorded. Plan of Care Patient Instructions A skin abscess is a bacterial infection that forms a pocket of pus. A boil is a kind of skin abscess. The doctor may have cut an opening in the abscess so that the pus can drain out. You may have gauze in the cut so that the abscess will stay open and keep draining. You may need antibiotics. You will need to follow up with your doctor to make sure the infection has gone away. The doctor has checked you carefully, but problems can develop later. If you notice any problems or new symptoms, get medical treatment right away. Follow-up care is a barbosa part of your treatment and safety. Be sure to make and go to all appointments, and call your doctor if you are having problems. It's also a good idea to know your test results and keep a list of the medicines you take. How can you care for yourself at home? Apply warm and dry compresses, a heating pad set on low, or a hot water bottle 3 or 4 times a day for pain. Keep a cloth between the heat source and your skin. If your doctor prescribed antibiotics, take them as directed. Do not stop taking them just because you feel better. You need to take the full course of antibiotics. Take pain medicines exactly as directed. If the doctor gave you a prescription medicine for pain, take it as prescribed. If you are not taking a prescription pain medicine, ask your doctor if you can take an tfmr-jfl-pofjowd medicine. Keep your bandage clean and dry. Change the bandage whenever it gets wet or dirty, or at least one time a day. If the abscess was packed with gauze: Keep follow-up appointments to have the gauze changed or removed. If the doctor instructed you to remove the gauze, gently pull out all of the gauze when your doctor tells you to. After the gauze is removed, soak the area in warm water for 15 to 20 minutes 2 times a day, until the wound closes. When should you call for help? Call your doctor now or seek immediate medical care if: You have signs of worsening infection, such as: Increased pain, swelling, warmth, or redness. Red streaks leading from the infected skin. Pus draining from the wound. A fever. Watch closely for changes in your health, and be sure to contact your doctor if: You do not get better as expected. Reminders Provider Appointments None recorded. Lab None recorded. Referral None recorded. Procedures None recorded. Surgeries None recorded. Imaging None recorded. Medications Name Start Date bupropion HCl XL 300 mg 24 hr tablet, extended release TAKE 1 TABLET BY MOUTH EVERY DAY Chlor-Trimeton Claritin fluoxetine 20 mg capsule TAKE THREE CAPSULES BY MOUTH ONCE DAILY hydrochlorothiazide 25 mg tablet TAKE 1 TABLET BY MOUTH EVERY DAY hyoscyamine ER 0.375 mg tablet,extended release,12 hr TAKE 1 TABLET BY MOUTH TWICE A DAY irbesartan 300 mg tablet TAKE 1 TABLET DAILY- SUBSTITUTION FOR VALSARTAN Keflex 500 mg capsule Take 1 capsule twice a day by oral route for 10 days. montelukast 10 mg tablet TAKE 1 TABLET BY MOUTH NIGHTLY AT BEDTIME pantoprazole 40 mg tablet,delayed release TAKE 1 TABLET BY MOUTH EVERY DAY potassium chloride ER 20 mEq tablet,extended release(part/cryst) TAKE ONE TABLET BY MOUTH ONE TIME DAILY Shingrix (PF) 50 mcg/0.5 mL intramuscular suspension, kit TO BE ADMINISTERED BY PHARMACIST FOR IMMUNIZATION [facility] Medications Administered None recorded. Vitals Height Weight BMI Blood Pressure 6 ft 238 lbs 32.3 kg/m2 117/80 mm[Hg] Lab Results None recorded. Allergies Code [...] History Smoking Status Never Smoker Past Encounters 09/08/2018 Abscess of Buttock; Body Mass Index 30+ - Obesity; Elevated Blood Pressure Michell Fernandez, [facility]: [address] [facility], [place] [address], Ph. History of Present Illness Ycjb-Oinujis-Xmfbi-Skin Lesion-Bite 1 Reported By: Patient HPI: Location: ; buttock. Quality: not itchy, painful, single. Duration: has noted for <1 week. Onset/Timing: gradual onset. Context: no new detergents or skin products, no one else with similar rash, no sting or bite. Aggravating factors: nothing makes it worse. Associated Symptoms: no fever/chills, no muscle aches, no headache, no cold symptoms, no nausea, no vomiting, no diarrhea, no urinary symptoms Note:58 YO male with possible boil on right buttock Review of Systems:ROS as noted in the HPI Review of Systems Basic Reported By: Patient Notes: 58 YO male with possible boil on right buttock Physical Exam Adult Basic, Adult Male Complete Reported By: Patient Constitutional: General Appearance: obese. Level of Distress: NAD. Ambulation: ambulating normally Psychiatric: Mental Status: active and alert. Orientation: to time, to place, to person Lungs: Respiratory effort: no dyspnea, no tachypnea, no use of accessory muscles, no intercostal retractions. Auscultation: breath sounds normal, good air movement Cardiovascular: Heart Auscultation: RRR, no murmurs Skin: Inspection and palpation: no rash, no lesions, no ulcer, no abnormal nevi, no induration, no nodules, good turgor, no jaundice; 1.5 cm area of erythema, swelling and warmth to right buttock. No drainage noted Notes: 58 YO male with possible boil on right buttock
[2018-09-29 10:40] LABS: BASOPHILS % 0.4 % (0.0-1.0); EOSINOPHILS # (AUTO) 0.2 (0.0-0.4); EOSINOPHILS % 2.9 % (0.0-6.0); HEMATOCRIT 38.1 % (38.2-49.6); HEMOGLOBIN 12.8 g/dL (14.0-18.0); LYMPHOCYTES # (AUTO) 1.6 (1.0-3.2); MEAN CORPUSCULAR HEMOGLOBIN 29.1 pg (28-32); MEAN CORPUSCULAR HGB CONC 33.6 g/dL (31-35); MEAN CORPUSCULAR VOLUME 86.6 fL (81-99); MONOCYTES # (AUTO) 0.7 (0.2-0.8); NEUTROPHILS % 66.3 % (38.7-80.0); PLATELET COUNT 235 x10e3/uL (140-360); RED CELL DISTRIBUTION WIDTH 12.2 % (11.7-14.4)
[2018-09-29 11:04] LABS: ANION GAP 13.2 mmol/L (8-16); BLOOD UREA NITROGEN 15 mg/dL (7-26); BUN/CREATININE RATIO 16 (6-25); CALCIUM 9.7 mg/dL (8.4-10.2); CARBON DIOXIDE 26 mmol/L (22-29); CHLORIDE 101 mmol/L (98-107); CREATININE, SERUM 0.96 mg/dL (0.72-1.25); EST GLOMERULAR FILTRATION RATE > 60 ML/MIN (60-); GLUCOSE 116 mg/dL (74-118); POTASSIUM 4.2 mmol/L (3.5-5.1); SODIUM 136 mmol/L (136-145)
[2018-09-29 13:30] VITALS: BP 122/83
--- NOTE | 2018-09-29 15:03 | Operative Report ---
DATE OF PROCEDURE: 09/29/2018 SURGEON: Leonel Gibbons MD PREOPERATIVE DIAGNOSIS: Cystic mass of the right buttock. POSTOPERATIVE DIAGNOSIS: Cystic mass of the right buttock. OPERATION PERFORMED: Wide excision of cystic mass of the right buttock. ANESTHESIA: General. COMPLICATIONS: None. ESTIMATED BLOOD LOSS: Minimal. PROCEDURE IN DETAIL: With the patient lying in bed in the lithotomy position under good general anesthesia, the perineum and buttocks were prepped with Betadine solution and draped in the usual manner. There was a palpable mass at the tip of the right buttocks with an area of induration the skin all the way around. It was then infiltrated with 0.25% Marcaine with epinephrine. An elliptical incision was made to include the skin overlying the mass and flaps were then developed in all directions. Normal subcutaneous tissue was identified in all directions around the mass and the mass was slowly and carefully resected and totally and completely removed. The whole area was then thoroughly irrigated. Hemostasis was ascertained. The subcutaneous tissue was then reapproximated with interrupted sutures of 3-0 Vicryl and the skin was closed with interrupted vertical mattress sutures of 3-0 silk. A dressing was applied. The sponge, lap, and needle count was correct. The patient tolerated the procedure well and returned to the recovery room in stable condition. Leonel Gibbons MD JLR/MODL /[id number]
== END | disposition home or self-care (01) ==
LOC: OR 09:21
PROVIDERS: ATTEND Surgery
DX: R22.2 Localized swelling, mass and lump, trunk (principal); I45.10 Unspecified right bundle-branch block; G47.33 Obstructive sleep apnea (adult) (pediatric); I10 Essential (primary) hypertension; E11.9 Type 2 diabetes mellitus without complications; F32.9 Major depressive disorder, single episode, unspecified; Z88.2 Allergy status to sulfonamides; Z98.84 Bariatric surgery status
CPT/HCPCS: 11400; 12031; 36415; 80048; 82948; 85025; 88304; 93005; J0131; J0694; J1100; J2001; J2175; J2250; J2405; J2704

== ENCOUNTER 2020-09-06 16:05 | Inpatient (IN) | payer BC, OTHER ==
[~2020-09-06] VITALS: Ht 182.9 cm; Wt 107.0 kg
[~2020-09-06 16:05] MED LIST changes: -ACETAMINOPHEN 1000 MG/100 ML IV ONE; -BUPIVACAINE 0.25%/EPI 30ML SDV INJ ONE; -CEFOXITIN SOD 1 GM VIAL ONE; -DEXAMETHASONE SOD PHOS INJ 4 MG/ML VIAL ONE; -EPHEDRINE SULFATE INJ 50 MG/10 ML SYR ONE; -FENTANYL CITRATE/PF 100MCG/2 ML INJ ONE; -LIDOCAINE HCL 1% LOCAL INJ 20 ML VIAL ONE; -LIDOCAINE HCL 2% LOCAL INJ 5 ML SDV VIAL INJ ONE; -MEPERIDINE HCL INJ 25 MG/ML VIAL ONE; -MIDAZOLAM HCL 2 MG/2 ML VIAL ONE; -ONDANSETRON HCL INJ 2MG/ML 2ML 2 MG/ML VIAL ONE; -PROPOFOL IV EMULSION 10 MG/ML 20 ML VIAL ONE; -SEVOFLURANE INHAL SOLN 250 ML PEN BTL ONE
[2020-09-06] MEDS ORDERED: ACETAMINOPHEN 325 MG TAB PO NR (16:30)
[2020-09-06 16:40] LABS: BASOPHILS # (AUTO) 0.1 (0.0-0.1); BASOPHILS % 0.3 % (0.0-1.0); EOSINOPHILS # (AUTO) 0.2 (0.0-0.4); EOSINOPHILS % 1.1 % (0.0-6.0); HEMATOCRIT 37.6 % (38.2-49.6); HEMOGLOBIN 11.9 g/dL (14.0-18.0); LYMPHOCYTES # (AUTO) 1.6 (1.0-3.2); LYMPHOCYTES % 10.6 % (18.0-39.1); MEAN CORPUSCULAR HEMOGLOBIN 25.5 pg (28-32); MEAN CORPUSCULAR HGB CONC 31.6 g/dL (31-35); MEAN CORPUSCULAR VOLUME 80.7 fL (81-99); MONOCYTES # (AUTO) 1.3 (0.2-0.8); MONOCYTES % 8.7 % (4.4-11.3); NEUTROPHILS % 78.7 % (38.7-80.0); PLATELET COUNT 365 x10e3/uL (140-360); RED BLOOD COUNT 4.66 x10e6/uL (4.3-5.7); RED CELL DISTRIBUTION WIDTH 13.1 % (11.7-14.4)
[2020-09-06] MEDS ORDERED: ASPIRIN 81 MG CHEW TAB PO ONE (16:45)
[2020-09-06] MEDS ORDERED: SODIUM CHLORIDE 0.9% 1000ML 1,000 ML IV ONE (17:00)
[2020-09-06] MEDS ORDERED: SODIUM CHLORIDE 0.9% 1000ML 1,000 ML ONE (17:02)
[2020-09-06 17:15] LABS: ALANINE AMINOTRANSFERASE 39 IU/L (0-55); ALBUMIN 3.2 g/dL (3.5-5.0); ALBUMIN/GLOBULIN RATIO 0.7 (0.8-2.0); ALKALINE PHOSPHATASE 126 IU/L (40-150); BLOOD UREA NITROGEN 11 mg/dL (7-26); BUN/CREATININE RATIO 10 (6-25); CALCIUM 9.1 mg/dL (8.4-10.2); CARBON DIOXIDE 29 mmol/L (22-29); CHLORIDE 94 mmol/L (98-107); CREATININE, SERUM 1.05 mg/dL (0.72-1.25); EST GLOMERULAR FILTRATION RATE > 60 ML/MIN (60-); GLUCOSE 122 mg/dL (74-118); SODIUM 134 mmol/L (136-145)
[2020-09-06] MEDS ORDERED: CEFEPIME HCL 1 GM VIAL IV ONE (17:15)
[2020-09-06] MEDS ORDERED: CEFEPIME HCL 1GM 1 GM in SODIUM CHLORIDE 0.9% 50ML 50 ML IV ONE (17:30)
[2020-09-06 17:36] LABS: CREATINE KINASE MB 0.7 ng/mL (0-5.0)
[2020-09-06] MEDS ORDERED: IOPAMIDOL 370 MG/ML 200 ML INFUS..BTL INJ ONE (17:47)
[2020-09-06] MEDS ORDERED: SODIUM CHLORIDE 0.9% 50ML 50 ML ONE ×2 (17:47→22:40)
[2020-09-06 18:37] LABS: CLARITY,URINE HAZY (CLEAR); COLOR,URINE YELLOW (YELLOW)
[2020-09-06 18:38] LABS: KETONES,URINE NEGATIVE (NEGATIVE); LEUKOCYTE ESTERASE ,URINE NEGATIVE (NEGATIVE); NITRITE,URINE NEGATIVE (NEGATIVE); PROTEIN,URINE DIPSTICK NEGATIVE (NEGATIVE); URINE UROBILINOGEN 0.2 mg/dL (0.2 - 1)
[2020-09-06 18:39] LABS: BACTERIA,URINE FEW /HPF; EPITHELIAL CELLS,URINE FEW /LPF; RBC,URINE 0-5 /HPF (0-5)
[2020-09-06] MEDS: CEFEPIME HCL 1GM 1 GM in SODIUM CHLORIDE 0.9% 50ML 50 ML IV SCH (20:13)
[2020-09-06] MEDS ORDERED: CEFEPIME HCL 1 GM VIAL IV SCH (22:00)
[2020-09-06] MEDS ORDERED: CEFEPIME HCL 1 GM VIAL ONE (22:40)
[2020-09-06] MEDS: DICYCLOMINE HCL 10 MG CAP PO SCH (22:45)
[2020-09-06] MEDS: SODIUM CHLORIDE 0.9% 1000ML 1,000 ML IV SCH (22:45)
[2020-09-06] MEDS: METRONIDAZOLE 500MG/NS 100ML 100 ML IV SCH (22:51)
[2020-09-06 22:52] VITALS: BP 127/69
[2020-09-06 22:59] VITALS: BP 127/69
[2020-09-07] VITALS (8 sets, daily range): BP systolic 127–158; BP diastolic 69–84
[2020-09-07] MEDS: SODIUM CHLORIDE 0.9% 1000ML 1,000 ML IV SCH ×2 (05:07→20:37)
[2020-09-07] MEDS: CEFEPIME HCL 1GM 1 GM in SODIUM CHLORIDE 0.9% 50ML 50 ML IV SCH ×3 (05:07→20:37)
[2020-09-07] MEDS ORDERED: FLUOXETINE HCL20 MG PO (05:22)
[2020-09-07] MEDS ORDERED: POTASSIUM CHLO20 ME1 PO (05:22)
[2020-09-07] MEDS ORDERED: HYDROCHLOROTHIA25 MG PO (05:23)
[2020-09-07] MEDS ORDERED: MONTELUKAST SOD10 MG PO (05:23)
[2020-09-07] MEDS ORDERED: PROTONIX20 MG PO (05:23)
[2020-09-07] MEDS ORDERED: IRBESARTAN150 MG PO (05:23)
[2020-09-07] MEDS ORDERED: BUPROPION XL150 MG PO (05:23)
[2020-09-07] MEDS: METRONIDAZOLE 500MG/NS 100ML 100 ML IV SCH ×4 (06:12→23:44)
[2020-09-07 07:02] LABS: BASOPHILS % 0.3 % (0.0-1.0); EOSINOPHILS # (AUTO) 0.2 (0.0-0.4); EOSINOPHILS % 1.4 % (0.0-6.0); HEMATOCRIT 33.3 % (38.2-49.6); HEMOGLOBIN 10.5 g/dL (14.0-18.0); LYMPHOCYTES # (AUTO) 1.2 (1.0-3.2); LYMPHOCYTES % 9.6 % (18.0-39.1); MEAN CORPUSCULAR HEMOGLOBIN 25.8 pg (28-32); MEAN CORPUSCULAR HGB CONC 31.5 g/dL (31-35); MEAN CORPUSCULAR VOLUME 81.8 fL (81-99); MONOCYTES # (AUTO) 1.3 (0.2-0.8); MONOCYTES % 10.1 % (4.4-11.3); NEUTROPHILS # (AUTO) 9.7 (2.1-6.9); PLATELET COUNT 287 x10e3/uL (140-360); RED BLOOD COUNT 4.07 x10e6/uL (4.3-5.7); RED CELL DISTRIBUTION WIDTH 12.8 % (11.7-14.4)
[2020-09-07 07:45] LABS: ALANINE AMINOTRANSFERASE 32 IU/L (0-55); ALBUMIN 2.7 g/dL (3.5-5.0); ALBUMIN/GLOBULIN RATIO 0.7 (0.8-2.0); ALKALINE PHOSPHATASE 116 IU/L (40-150); ANION GAP 13.7 mmol/L (8-16); BLOOD UREA NITROGEN 10 mg/dL (7-26); BUN/CREATININE RATIO 11 (6-25); CALCIUM 8.4 mg/dL (8.4-10.2); CARBON DIOXIDE 27 mmol/L (22-29); CHLORIDE 98 mmol/L (98-107); EST GLOMERULAR FILTRATION RATE > 60 ML/MIN (60-); GLUCOSE 117 mg/dL (74-118); POTASSIUM 3.7 mmol/L (3.5-5.1); SODIUM 135 mmol/L (136-145)
[2020-09-07] MEDS: DICYCLOMINE HCL 10 MG CAP PO SCH ×3 (08:49→20:37)
[2020-09-07 09:01] LABS: OCCULT BLOOD STOOL POSITIVE (NEGATIVE)
[2020-09-07] MEDS ORDERED: ONDANSETRON HCL INJ 2MG/ML 2ML 2 MG/ML VIAL IV PRN (10:15)
[2020-09-07] MEDS ORDERED: HYDRALAZINE HCL 20 MG/ML VIAL IV PRN (10:15)
[2020-09-07 10:37] LABS: C DIFFICILE TOXIN A&B AMP PROB NEGATIVE (NEGATIVE)
[2020-09-07] MEDS ORDERED: FLOMAX0.4 MG PO (11:40)
[2020-09-07] MEDS ORDERED: CEFEPIME HCL 1 GM VIAL ONE ×2 (13:25→20:45)
[2020-09-07] MEDS ORDERED: SODIUM CHLORIDE 0.9% 50ML 50 ML ONE ×2 (13:26→20:46)
[2020-09-07] MEDS: PANTOPRAZOLE SOD 40 MG TABEC PO SCH (17:14)
[2020-09-07] MEDS: TAMSULOSIN HCL 0.4 MG CAP PO SCH (20:37)
[2020-09-07] MEDS: ACETAMINOPHEN 325 MG TAB PO PRN (21:06)
[2020-09-08] VITALS (8 sets, daily range): BP systolic 142–152; BP diastolic 71–78
[2020-09-08] MEDS: SODIUM CHLORIDE 0.9% 1000ML 1,000 ML IV SCH ×3 (02:15→22:36)
[2020-09-08] MEDS ORDERED: CEFEPIME HCL 1 GM VIAL ONE ×3 (05:00→21:29)
[2020-09-08] MEDS ORDERED: SODIUM CHLORIDE 0.9% 50ML 50 ML ONE ×3 (05:00→21:30)
[2020-09-08] MEDS: CEFEPIME HCL 1GM 1 GM in SODIUM CHLORIDE 0.9% 50ML 50 ML IV SCH ×3 (05:17→21:40)
[2020-09-08] MEDS: METRONIDAZOLE 500MG/NS 100ML 100 ML IV SCH ×4 (06:23→23:50)
[2020-09-08 06:54] LABS: % IRON SATURATION 8 % (15-50); IRON 20 ug/dL (65-175); TOTAL IRON BINDING CAPACITY 266 ug/dL (261-478); TRANSFERRIN 190 mg/dL (174-364)
[2020-09-08 08:06] LABS: BASOPHILS % 0.3 % (0.0-1.0); EOSINOPHILS # (AUTO) 0.1 (0.0-0.4); HEMATOCRIT 32.8 % (38.2-49.6); HEMOGLOBIN 10.6 g/dL (14.0-18.0); LYMPHOCYTES # (AUTO) 1.4 (1.0-3.2); LYMPHOCYTES % 10.8 % (18.0-39.1); MEAN CORPUSCULAR HEMOGLOBIN 25.9 pg (28-32); MEAN CORPUSCULAR HGB CONC 32.3 g/dL (31-35); MONOCYTES # (AUTO) 1.1 (0.2-0.8); MONOCYTES % 8.7 % (4.4-11.3); NEUTROPHILS # (AUTO) 9.8 (2.1-6.9); NEUTROPHILS % 78.5 % (38.7-80.0); PLATELET COUNT 283 x10e3/uL (140-360); RED CELL DISTRIBUTION WIDTH 12.8 % (11.7-14.4)
[2020-09-08] MEDS: IRBESARTAN 150 MG TAB PO SCH (08:13)
[2020-09-08] MEDS: HYDROCHLOROTHIAZIDE 25 MG TAB PO SCH (08:13)
[2020-09-08] MEDS: DICYCLOMINE HCL 10 MG CAP PO SCH ×3 (08:13→19:53)
[2020-09-08] MEDS: PANTOPRAZOLE SOD 40 MG TABEC PO SCH ×2 (08:13→17:27)
[2020-09-08] MEDS: BUPROPION HCL 150 MG TABCR PO SCH (08:14)
[2020-09-08] MEDS: FLUOXETINE HCL 20 MG CAP PO SCH (08:14)
[2020-09-08 08:49] LABS: ALANINE AMINOTRANSFERASE 30 IU/L (0-55); ALBUMIN 2.7 g/dL (3.5-5.0); ALBUMIN/GLOBULIN RATIO 0.7 (0.8-2.0); ALKALINE PHOSPHATASE 118 IU/L (40-150); ANION GAP 13.4 mmol/L (8-16); BLOOD UREA NITROGEN 6 mg/dL (7-26); BUN/CREATININE RATIO 7 (6-25); CALCIUM 8.2 mg/dL (8.4-10.2); CARBON DIOXIDE 24 mmol/L (22-29); CHLORIDE 100 mmol/L (98-107); CREATININE, SERUM 0.87 mg/dL (0.72-1.25); EST GLOMERULAR FILTRATION RATE > 60 ML/MIN (60-); GLUCOSE 137 mg/dL (74-118); POTASSIUM 3.4 mmol/L (3.5-5.1); SODIUM 134 mmol/L (136-145)
[2020-09-08] MEDS ORDERED: TAMSULOSIN HCL 0.4 MG CAP PO SCH (09:00)
[2020-09-08] MEDS ORDERED: POTASSIUM CHLORIDE 10MEQ EA PO ONE (12:30)
[2020-09-08] MEDS: ACETAMINOPHEN 325 MG TAB PO PRN ×2 (18:06→22:36)
[2020-09-08] MEDS: TAMSULOSIN HCL 0.4 MG CAP PO SCH (19:53)
[2020-09-08] MEDS: CHOLESTYRAMINE 4 GM PACKET PO PRN (21:40)
[2020-09-09] VITALS (9 sets, daily range): BP systolic 124–154; BP diastolic 68–77
[2020-09-09] MEDS ORDERED: DIPHENOXYLATE/ATROPINE TAB PO ONE (01:30)
[2020-09-09 06:13] LABS: BASOPHILS % 0.3 % (0.0-1.0); EOSINOPHILS # (AUTO) 0.2 (0.0-0.4); EOSINOPHILS % 1.1 % (0.0-6.0); HEMATOCRIT 32.4 % (38.2-49.6); HEMOGLOBIN 10.7 g/dL (14.0-18.0); LYMPHOCYTES # (AUTO) 1.3 (1.0-3.2); LYMPHOCYTES % 9.8 % (18.0-39.1); MEAN CORPUSCULAR HEMOGLOBIN 26.6 pg (28-32); MEAN CORPUSCULAR VOLUME 80.4 fL (81-99); MONOCYTES # (AUTO) 1.1 (0.2-0.8); MONOCYTES % 7.9 % (4.4-11.3); NEUTROPHILS # (AUTO) 10.7 (2.1-6.9); NEUTROPHILS % 80.2 % (38.7-80.0); PLATELET COUNT 289 x10e3/uL (140-360); RED BLOOD COUNT 4.03 x10e6/uL (4.3-5.7); RED CELL DISTRIBUTION WIDTH 12.6 % (11.7-14.4)
[2020-09-09] MEDS: CEFEPIME HCL 1GM 1 GM in SODIUM CHLORIDE 0.9% 50ML 50 ML IV SCH ×3 (06:19→22:40)
[2020-09-09] MEDS ORDERED: CEFEPIME HCL 1 GM VIAL ONE ×3 (06:25→22:41)
[2020-09-09] MEDS ORDERED: SODIUM CHLORIDE 0.9% 50ML 50 ML ONE ×3 (06:26→22:41)
[2020-09-09 06:41] LABS: ANION GAP 13.9 mmol/L (8-16); BLOOD UREA NITROGEN 5 mg/dL (7-26); BUN/CREATININE RATIO 6 (6-25); CALCIUM 8.2 mg/dL (8.4-10.2); CARBON DIOXIDE 24 mmol/L (22-29); CHLORIDE 100 mmol/L (98-107); CREATININE, SERUM 0.83 mg/dL (0.72-1.25); EST GLOMERULAR FILTRATION RATE > 60 ML/MIN (60-); GLUCOSE 113 mg/dL (74-118); SODIUM 135 mmol/L (136-145)
[2020-09-09 06:43] LABS: POTASSIUM 2.9 mmol/L (3.5-5.1)
[2020-09-09] MEDS: METRONIDAZOLE 500MG/NS 100ML 100 ML IV SCH ×3 (06:50→18:04)
[2020-09-09 07:19] LABS: MAGNESIUM 1.7 MG/DL (1.3-2.1); PHOSPHORUS 3.3 MG/DL (2.3-4.7)
[2020-09-09] MEDS: PANTOPRAZOLE SOD 40 MG TABEC PO SCH ×2 (08:08→16:17)
[2020-09-09] MEDS: BUPROPION HCL 150 MG TABCR PO SCH (08:09)
[2020-09-09] MEDS: IRBESARTAN 150 MG TAB PO SCH (08:09)
[2020-09-09] MEDS: FLUOXETINE HCL 20 MG CAP PO SCH (08:09)
[2020-09-09] MEDS: HYDROCHLOROTHIAZIDE 25 MG TAB PO SCH (08:09)
[2020-09-09] MEDS: DICYCLOMINE HCL 10 MG CAP PO SCH ×3 (08:09→20:08)
[2020-09-09] MEDS: KCL 20MEQ/.9 SOD CHL 1,000 ML IV SCH (08:23)
[2020-09-09] MEDS ORDERED: POTASSIUM CHLORIDE 10MEQ EA PO ONE (08:30)
[2020-09-09] MEDS: IRON SUCROSE 100 MG in SODIUM CHLORIDE 0.9% 100 ML 100 ML IV SCH (10:38)
[2020-09-09] MEDS: CHOLESTYRAMINE 4 GM PACKET PO PRN ×2 (13:03→21:35)
[2020-09-09] MEDS: ACETAMINOPHEN 325 MG TAB PO PRN ×2 (16:17→21:35)
[2020-09-09] MEDS: TAMSULOSIN HCL 0.4 MG CAP PO SCH (20:08)
[2020-09-10] VITALS (8 sets, daily range): BP systolic 132–159; BP diastolic 70–91
[2020-09-10] MEDS: METRONIDAZOLE 500MG/NS 100ML 100 ML IV SCH ×4 (00:48→21:00)
[2020-09-10] MEDS ORDERED: DIPHENOXYLATE/ATROPINE TAB PO ONE (01:30)
[2020-09-10] MEDS: FLUOXETINE HCL 20 MG CAP PO SCH (04:15)
[2020-09-10] MEDS: BUPROPION HCL 150 MG TABCR PO SCH (04:15)
[2020-09-10] MEDS: KCL 20MEQ/.9 SOD CHL 1,000 ML IV SCH (04:20)
[2020-09-10] MEDS ORDERED: CEFEPIME HCL 1 GM VIAL ONE ×2 (05:30→14:26)
[2020-09-10] MEDS ORDERED: SODIUM CHLORIDE 0.9% 50ML 50 ML ONE ×2 (05:31→14:27)
[2020-09-10] MEDS: CEFEPIME HCL 1GM 1 GM in SODIUM CHLORIDE 0.9% 50ML 50 ML IV SCH ×3 (05:45→23:30)
[2020-09-10 05:55] LABS: BASOPHILS % 0.3 % (0.0-1.0); EOSINOPHILS # (AUTO) 0.1 (0.0-0.4); EOSINOPHILS % 0.6 % (0.0-6.0); HEMATOCRIT 31.8 % (38.2-49.6); HEMOGLOBIN 10.4 g/dL (14.0-18.0); LYMPHOCYTES % 6.4 % (18.0-39.1); MEAN CORPUSCULAR HEMOGLOBIN 25.7 pg (28-32); MEAN CORPUSCULAR HGB CONC 32.7 g/dL (31-35); MEAN CORPUSCULAR VOLUME 78.5 fL (81-99); MONOCYTES # (AUTO) 1.1 (0.2-0.8); NEUTROPHILS # (AUTO) 13.1 (2.1-6.9); NEUTROPHILS % 84.8 % (38.7-80.0); PLATELET COUNT 326 x10e3/uL (140-360); RED BLOOD COUNT 4.05 x10e6/uL (4.3-5.7); RED CELL DISTRIBUTION WIDTH 12.6 % (11.7-14.4)
[2020-09-10 06:19] LABS: BLOOD UREA NITROGEN < 5 mg/dL (7-26); CALCIUM 8.6 mg/dL (8.4-10.2); CARBON DIOXIDE 22 mmol/L (22-29); CHLORIDE 99 mmol/L (98-107); CREATININE, SERUM 0.81 mg/dL (0.72-1.25); EST GLOMERULAR FILTRATION RATE > 60 ML/MIN (60-); GLUCOSE 110 mg/dL (74-118); SODIUM 135 mmol/L (136-145)
[2020-09-10 06:20] LABS: BUN/CREATININE RATIO 6 (6-25)
[2020-09-10] MEDS ORDERED: POTASSIUM CHLORIDE 20 MEQ TAB CR PO ONE (08:15)
[2020-09-10] MEDS: PANTOPRAZOLE SOD 40 MG TABEC PO SCH ×2 (09:42→17:02)
[2020-09-10] MEDS: IRBESARTAN 150 MG TAB PO SCH (09:42)
[2020-09-10] MEDS: HYDROCHLOROTHIAZIDE 25 MG TAB PO SCH (09:42)
[2020-09-10] MEDS: IRON SUCROSE 100 MG in SODIUM CHLORIDE 0.9% 100 ML 100 ML IV SCH (09:42)
[2020-09-10] MEDS: DIPHENOXYLATE/ATROPINE TAB PO SCH ×2 (09:44→17:02)
[2020-09-10] MEDS: CHOLESTYRAMINE 4 GM PACKET PO SCH ×2 (10:40→18:01)
[2020-09-10] MEDS ORDERED: MAGNESIUM SULF 1GRAM/DEXTROSE 100 ML IV ONE (11:15)
[2020-09-10] MEDS: ACETAMINOPHEN 325 MG TAB PO PRN ×2 (12:52→20:12)
[2020-09-11] VITALS (8 sets, daily range): BP systolic 131–164; BP diastolic 69–84
[2020-09-11] MEDS: KCL 20MEQ/.9 SOD CHL 1,000 ML IV SCH ×2 (01:06→20:00)
[2020-09-11] MEDS: METRONIDAZOLE 500MG/NS 100ML 100 ML IV SCH ×2 (01:51→09:07)
[2020-09-11] MEDS: ACETAMINOPHEN 325 MG TAB PO PRN ×2 (01:58→22:13)
[2020-09-11 05:03] LABS: BASOPHILS % 0.3 % (0.0-1.0); EOSINOPHILS # (AUTO) 0.1 (0.0-0.4); EOSINOPHILS % 0.8 % (0.0-6.0); HEMATOCRIT 30.7 % (38.2-49.6); HEMOGLOBIN 10.1 g/dL (14.0-18.0); LYMPHOCYTES # (AUTO) 1.2 (1.0-3.2); LYMPHOCYTES % 7.8 % (18.0-39.1); MEAN CORPUSCULAR HGB CONC 32.9 g/dL (31-35); MEAN CORPUSCULAR VOLUME 78.9 fL (81-99); MONOCYTES # (AUTO) 1.2 (0.2-0.8); MONOCYTES % 7.9 % (4.4-11.3); NEUTROPHILS # (AUTO) 12.8 (2.1-6.9); NEUTROPHILS % 82.1 % (38.7-80.0); PLATELET COUNT 328 x10e3/uL (140-360); RED BLOOD COUNT 3.89 x10e6/uL (4.3-5.7); RED CELL DISTRIBUTION WIDTH 12.7 % (11.7-14.4)
[2020-09-11 05:27] LABS: ANION GAP 15.2 mmol/L (8-16); BLOOD UREA NITROGEN < 5 mg/dL (7-26); CALCIUM 8.4 mg/dL (8.4-10.2); CARBON DIOXIDE 24 mmol/L (22-29); CHLORIDE 99 mmol/L (98-107); CREATININE, SERUM 0.82 mg/dL (0.72-1.25); EST GLOMERULAR FILTRATION RATE > 60 ML/MIN (60-); GLUCOSE 123 mg/dL (74-118); MAGNESIUM 1.8 MG/DL (1.3-2.1); PHOSPHORUS 3.4 MG/DL (2.3-4.7); POTASSIUM 3.2 mmol/L (3.5-5.1); SODIUM 135 mmol/L (136-145)
[2020-09-11 05:40] LABS: BUN/CREATININE RATIO 6 (6-25)
[2020-09-11] MEDS ORDERED: POTASSIUM CHLORIDE 20 MEQ TAB CR PO ONE (06:00)
[2020-09-11] MEDS: CEFEPIME HCL 1GM 1 GM in SODIUM CHLORIDE 0.9% 50ML 50 ML IV SCH (11:02)
[2020-09-11] MEDS: PANTOPRAZOLE SOD 40 MG TABEC PO SCH ×2 (11:03→16:12)
[2020-09-11] MEDS: DIPHENOXYLATE/ATROPINE TAB PO SCH ×2 (11:04→16:12)
[2020-09-11] MEDS: HYDROCHLOROTHIAZIDE 25 MG TAB PO SCH (11:04)
[2020-09-11] MEDS: IRBESARTAN 150 MG TAB PO SCH (11:04)
[2020-09-11] MEDS: FLUOXETINE HCL 20 MG CAP PO SCH (11:05)
[2020-09-11] MEDS: BUPROPION HCL 150 MG TABCR PO SCH (11:05)
[2020-09-11] MEDS: CHOLESTYRAMINE 4 GM PACKET PO SCH ×2 (12:05→17:27)
[2020-09-11] MEDS ORDERED: CYANOCOBALAMIN INJ 1,000 MCG/ML VIAL IM ONE (13:00)
[2020-09-11] MEDS: IRON SUCROSE 100 MG in SODIUM CHLORIDE 0.9% 100 ML 100 ML IV SCH (13:17)
[2020-09-11 13:39] LABS: CLARITY,URINE CLEAR (CLEAR); COLOR,URINE YELLOW (YELLOW); KETONES,URINE 1+ (NEGATIVE); LEUKOCYTE ESTERASE ,URINE NEGATIVE (NEGATIVE); NITRITE,URINE NEGATIVE (NEGATIVE); PROTEIN,URINE DIPSTICK TRACE (NEGATIVE); URINE UROBILINOGEN 0.2 mg/dL (0.2 - 1)
[2020-09-11 14:01] LABS: RBC,URINE 0-5 /HPF (0-5); WBC,URINE (MAN) 0-5 /HPF (0-5)
[2020-09-11 14:02] LABS: BACTERIA,URINE RARE /HPF
[2020-09-11] MEDS: MAGNESIUM OXIDE 400 MG TAB PO SCH (16:12)
[2020-09-11] MEDS: PIPERACILLIN/TAZOBAC 3.375 GM in SODIUM CHLORIDE 0.9% 50ML 50 ML IV SCH (21:16)
[2020-09-12] VITALS (8 sets, daily range): BP systolic 117–136; BP diastolic 58–87
[2020-09-12] MEDS ORDERED: SODIUM CHLORIDE 0.9% 50ML 100 ML ONE (04:41)
[2020-09-12] MEDS ORDERED: PIPERACILLIN/TAZOBAC 3.375 GM VIAL ONE (04:42)
[2020-09-12] MEDS: PIPERACILLIN/TAZOBAC 3.375 GM in SODIUM CHLORIDE 0.9% 50ML 50 ML IV SCH ×3 (05:05→20:12)
[2020-09-12] MEDS ORDERED: POTASSIUM CHLORIDE 20 MEQ TAB CR PO STA (05:51)
[2020-09-12 06:16] LABS: BASOPHILS % 0.3 % (0.0-1.0); EOSINOPHILS # (AUTO) 0.2 (0.0-0.4); EOSINOPHILS % 1.6 % (0.0-6.0); HEMATOCRIT 33.3 % (38.2-49.6); HEMOGLOBIN 10.7 g/dL (14.0-18.0); LYMPHOCYTES # (AUTO) 1.2 (1.0-3.2); LYMPHOCYTES % 9.3 % (18.0-39.1); MEAN CORPUSCULAR HEMOGLOBIN 25.6 pg (28-32); MEAN CORPUSCULAR HGB CONC 32.1 g/dL (31-35); MEAN CORPUSCULAR VOLUME 79.7 fL (81-99); MONOCYTES # (AUTO) 1.2 (0.2-0.8); MONOCYTES % 9.3 % (4.4-11.3); NEUTROPHILS # (AUTO) 10.1 (2.1-6.9); NEUTROPHILS % 78.3 % (38.7-80.0); PLATELET COUNT 377 x10e3/uL (140-360); RED BLOOD COUNT 4.18 x10e6/uL (4.3-5.7); RED CELL DISTRIBUTION WIDTH 12.7 % (11.7-14.4)
[2020-09-12 06:44] LABS: ANION GAP 15.2 mmol/L (8-16); BLOOD UREA NITROGEN 6 mg/dL (7-26); BUN/CREATININE RATIO 7 (6-25); CALCIUM 8.6 mg/dL (8.4-10.2); CARBON DIOXIDE 27 mmol/L (22-29); CHLORIDE 97 mmol/L (98-107); CREATININE, SERUM 0.88 mg/dL (0.72-1.25); EST GLOMERULAR FILTRATION RATE > 60 ML/MIN (60-); GLUCOSE 133 mg/dL (74-118); POTASSIUM 3.2 mmol/L (3.5-5.1); SODIUM 136 mmol/L (136-145)
[2020-09-12] MEDS: PANTOPRAZOLE SOD 40 MG TABEC PO SCH ×2 (07:30→16:30)
[2020-09-12] MEDS: FLUOXETINE HCL 20 MG CAP PO SCH (09:00)
[2020-09-12] MEDS: MULTIVITAMINS/MINERALS TAB PO SCH (09:00)
[2020-09-12] MEDS: POTASSIUM CHLORIDE 20 MEQ TAB CR PO SCH (09:00)
[2020-09-12] MEDS: ZINC SULFATE 220 MG CAP PO SCH (09:00)
[2020-09-12] MEDS: HYDROCHLOROTHIAZIDE 25 MG TAB PO SCH (09:00)
[2020-09-12] MEDS: BUPROPION HCL 150 MG TABCR PO SCH (09:00)
[2020-09-12] MEDS: IRON SUCROSE 100 MG in SODIUM CHLORIDE 0.9% 100 ML 100 ML IV SCH (09:00)
[2020-09-12] MEDS: IRBESARTAN 150 MG TAB PO SCH (09:00)
[2020-09-12] MEDS: MAGNESIUM OXIDE 400 MG TAB PO SCH ×2 (09:00→17:00)
[2020-09-12] MEDS: CHOLECALCIFEROL 400 UNIT TAB PO SCH (09:00)
[2020-09-12] MEDS: DIPHENOXYLATE/ATROPINE TAB PO SCH ×2 (09:00→17:00)
[2020-09-12] MEDS: CHOLESTYRAMINE 4 GM PACKET PO SCH ×2 (09:00→17:00)
[2020-09-12] MEDS: KCL 20MEQ/.9 SOD CHL 1,000 ML IV SCH (16:00)
[2020-09-12] MEDS: ACETAMINOPHEN 325 MG TAB PO PRN (17:38)
[2020-09-13] VITALS: BP 133/84
[2020-09-13 04:00] VITALS: BP 124/65
[2020-09-13] MEDS: PIPERACILLIN/TAZOBAC 3.375 GM in SODIUM CHLORIDE 0.9% 50ML 50 ML IV SCH (05:31)
[2020-09-13 05:32] LABS: BASOPHILS # (AUTO) 0.1 (0.0-0.1); BASOPHILS % 0.4 % (0.0-1.0); EOSINOPHILS # (AUTO) 0.3 (0.0-0.4); EOSINOPHILS % 1.8 % (0.0-6.0); HEMATOCRIT 33.4 % (38.2-49.6); HEMOGLOBIN 10.6 g/dL (14.0-18.0); LYMPHOCYTES # (AUTO) 1.6 (1.0-3.2); LYMPHOCYTES % 11.4 % (18.0-39.1); MEAN CORPUSCULAR HEMOGLOBIN 25.5 pg (28-32); MEAN CORPUSCULAR HGB CONC 31.7 g/dL (31-35); MEAN CORPUSCULAR VOLUME 80.5 fL (81-99); MONOCYTES # (AUTO) 1.3 (0.2-0.8); MONOCYTES % 9.3 % (4.4-11.3); NEUTROPHILS # (AUTO) 10.4 (2.1-6.9); PLATELET COUNT 366 x10e3/uL (140-360); RED BLOOD COUNT 4.15 x10e6/uL (4.3-5.7); RED CELL DISTRIBUTION WIDTH 13.2 % (11.7-14.4)
[2020-09-13 05:52] LABS: ANION GAP 17.7 mmol/L (8-16); BLOOD UREA NITROGEN 6 mg/dL (7-26); BUN/CREATININE RATIO 7 (6-25); CALCIUM 8.4 mg/dL (8.4-10.2); CARBON DIOXIDE 25 mmol/L (22-29); CHLORIDE 96 mmol/L (98-107); CREATININE, SERUM 0.87 mg/dL (0.72-1.25); EST GLOMERULAR FILTRATION RATE > 60 ML/MIN (60-); GLUCOSE 167 mg/dL (74-118); POTASSIUM 3.7 mmol/L (3.5-5.1); SODIUM 135 mmol/L (136-145)
[2020-09-13] MEDS: PANTOPRAZOLE SOD 40 MG TABEC PO SCH (07:30)
[2020-09-13] MEDS ORDERED: CIPROFLOXACIN250 MG PO (08:21)
[2020-09-13] MEDS ORDERED: DIPHENOXYLATE-1 EACH PO (08:23)
[2020-09-13] MEDS ORDERED: METRONIDAZOLE250 MG PO (08:24)
[2020-09-13 08:36] VITALS: BP 123/72
[2020-09-13 08:45] VITALS: BP 123/72
[2020-09-13] MEDS: IRON SUCROSE 100 MG in SODIUM CHLORIDE 0.9% 100 ML 100 ML IV SCH (09:00)
[2020-09-13] MEDS: HYDROCHLOROTHIAZIDE 25 MG TAB PO SCH (09:00)
[2020-09-13] MEDS: BUPROPION HCL 150 MG TABCR PO SCH (09:00)
[2020-09-13] MEDS: CHOLESTYRAMINE 4 GM PACKET PO SCH (09:00)
[2020-09-13] MEDS: POTASSIUM CHLORIDE 20 MEQ TAB CR PO SCH (09:00)
[2020-09-13] MEDS: FLUOXETINE HCL 20 MG CAP PO SCH (09:00)
[2020-09-13] MEDS: DIPHENOXYLATE/ATROPINE TAB PO SCH (09:00)
[2020-09-13] MEDS: CHOLECALCIFEROL 400 UNIT TAB PO SCH (09:00)
[2020-09-13] MEDS: MULTIVITAMINS/MINERALS TAB PO SCH (09:00)
[2020-09-13] MEDS: IRBESARTAN 150 MG TAB PO SCH (09:00)
[2020-09-13] MEDS: ZINC SULFATE 220 MG CAP PO SCH (09:00)
[2020-09-13] MEDS: MAGNESIUM OXIDE 400 MG TAB PO SCH (09:00)
[2020-09-13] MEDS ORDERED: CIPRO250 MG PO (15:47)
[2020-09-13] MEDS ORDERED: METRONIDAZOLE500 MG PO (15:48)
== END 2020-09-13 10:00 | disposition home or self-care (01) | DRG 871 ==
LOC: ER 16:12 → ERHOLD 19:46 → MED/SURG2 22:06 → OBSVTOIN 09-08 14:27
PROVIDERS: ADMIT Internal Medicine; ATTEND Internal Medicine
DX: A41.9 Sepsis, unspecified organism (principal); K57.93 Diverticulitis of intestine, part unspecified, without perforation or abscess with bleeding; N39.0 Urinary tract infection, site not specified; K29.70 Gastritis, unspecified, without bleeding; E87.8 Other disorders of electrolyte and fluid balance, not elsewhere classified; F32.9 Major depressive disorder, single episode, unspecified; Z20.822 Contact with and (suspected) exposure to COVID-19; Z98.84 Bariatric surgery status; D50.9 Iron deficiency anemia, unspecified; G89.29 Other chronic pain; N40.0 Benign prostatic hyperplasia without lower urinary tract symptoms; F41.9 Anxiety disorder, unspecified; I10 Essential (primary) hypertension; E83.42 Hypomagnesemia; M54.2 Cervicalgia; E87.6 Hypokalemia
CPT/HCPCS: 36415; 71045; 74177; 80048; 80053; 81001; 82270; 82550; 82553; 82607; 82746; 83540; 83605; 83735; 83993; 84100; 84466; 84484; 85025; 85045; 87040; 87045; 87086; 87177; 87493; 93005; 96360; 96361; 99284; G0378; J0360; J0692; J1756; J2543; J3420; J3475; J7030; Q9967; U0002

== ENCOUNTER → 2020-10-18 | Day surgery (SDC) | payer BC ==
[~2020-10-18] MED LIST changes: +BUPROPION XL150 MG PO; +CIPRO250 MG PO; +CIPROFLOXACIN250 MG PO; +DIPHENOXYLATE-1 EACH PO; +FENTANYL CITRATE/PF 100MCG/2 ML INJ ONE; +FLOMAX0.4 MG PO; +GLUCAGON FOR INJ 1 MG VIAL ONE; +HYOSCYAMINE SULFATE 0.5 MG/ML INJ ONE; -IRON; +IRON PO; +LACTATED RINGER'S 1,000 ML INJ ONE; +LIDOCAINE HCL 2% LOCAL INJ 5 ML SDV VIAL INJ ONE; +METRONIDAZOLE250 MG PO; +METRONIDAZOLE500 MG PO; +MIDAZOLAM HCL 2 MG/2 ML VIAL ONE; +OSTEO BI-FLEX1 EAC2 PO; +POTASSIUM CHLO20 ME1 PO; +PROPOFOL IV EMULSION 10 MG/ML 20 ML VIAL ONE; +PROTONIX20 MG PO; -VITAMIN B12; +VITAMIN B12 PO; -VITAMIN C; +VITAMIN C PO; +ZINC PO
[2020-10-18 18:32] LABS: WBC,FECAL (FECAL LACTOFERRIN) POSITIVE (NEGATIVE)
[2020-10-19 13:00] LABS: C DIFFICILE TOXIN A&B AMP PROB NEGATIVE (NEGATIVE)
== END | disposition home or self-care (01) ==
LOC: OR 13:47
PROVIDERS: ATTEND Internal Medicine Gastroenterology
DX: K29.50 Unspecified chronic gastritis without bleeding (principal); K51.90 Ulcerative colitis, unspecified, without complications; K51.20 Ulcerative (chronic) proctitis without complications; K20.90 Esophagitis, unspecified without bleeding; K21.9 Gastro-esophageal reflux disease without esophagitis; K57.30 Diverticulosis of large intestine without perforation or abscess without bleeding; K64.8 Other hemorrhoids; Z98.84 Bariatric surgery status; R55 Syncope and collapse; G47.33 Obstructive sleep apnea (adult) (pediatric); D50.9 Iron deficiency anemia, unspecified; I10 Essential (primary) hypertension; E11.9 Type 2 diabetes mellitus without complications; I45.10 Unspecified right bundle-branch block; F32.9 Major depressive disorder, single episode, unspecified; Z88.2 Allergy status to sulfonamides; Z88.8 Allergy status to other drugs, medicaments and biological substances; Z01.812 Encounter for preprocedural laboratory examination; Z20.822 Contact with and (suspected) exposure to COVID-19; Z68.31 Body mass index [BMI] 31.0-31.9, adult; Z87.01 Personal history of pneumonia (recurrent)
CPT/HCPCS: 36415; 43239; 45380; 83630; 83993; 85651; 86140; 86256; 86671; 87045; 87177; 87328; 87493; 93005; J1610; J1980; J2001; J2250; J2704; J3010; U0002

== ENCOUNTER 2020-12-31 17:08 | Emergency (ER) | payer BC ==
[~2020-12-31] VITALS: Ht 182.9 cm; Wt 107.0 kg
[~2020-12-31 17:08] MED LIST changes: -FENTANYL CITRATE/PF 100MCG/2 ML INJ ONE; -GLUCAGON FOR INJ 1 MG VIAL ONE; -HYOSCYAMINE SULFATE 0.5 MG/ML INJ ONE; -LACTATED RINGER'S 1,000 ML INJ ONE; -LIDOCAINE HCL 2% LOCAL INJ 5 ML SDV VIAL INJ ONE; -MIDAZOLAM HCL 2 MG/2 ML VIAL ONE; -PROPOFOL IV EMULSION 10 MG/ML 20 ML VIAL ONE
[2020-12-31] MEDS ORDERED: DEXAMETHASONE SOD PHOS 10 MG/1 ML VIAL IV ONE (17:30)
[2020-12-31 17:41] LABS: HEMATOCRIT 40.6 % (38.2-49.6); HEMOGLOBIN 12.9 g/dL (14.0-18.0); LYMPHOCYTES % 19.3 % (18.0-39.1); MEAN CORPUSCULAR HEMOGLOBIN 26.5 pg (28-32); MEAN CORPUSCULAR HGB CONC 31.8 g/dL (31-35); MEAN CORPUSCULAR VOLUME 83.4 fL (81-99); MONOCYTES # (AUTO) 0.4 (0.2-0.8); MONOCYTES % 8.7 % (4.4-11.3); NEUTROPHILS # (AUTO) 3.5 (2.1-6.9); NEUTROPHILS % 71.6 % (38.7-80.0); PLATELET COUNT 239 x10e3/uL (140-360); RED BLOOD COUNT 4.87 x10e6/uL (4.3-5.7); RED CELL DISTRIBUTION WIDTH 13.9 % (11.7-14.4)
[2020-12-31] MEDS ORDERED: CASIRIVIMAB/IMDEVIMAB 10 ML VIAL IV ONE (17:45)
[2020-12-31 17:59] LABS: ALBUMIN 3.2 g/dL (3.5-5.0); ALBUMIN/GLOBULIN RATIO 0.7 (0.8-2.0); ANION GAP 17.4 mmol/L (8-16); CALCIUM 8.9 mg/dL (8.4-10.2); CREATININE, SERUM 0.84 mg/dL (0.72-1.25); POTASSIUM 3.4 mmol/L (3.5-5.1)
[2020-12-31] MEDS ORDERED: CASIRIVIMAB/IMDEVIMAB 600 ML in SODIUM CHLORIDE 0.9% 100 ML IV ONE (18:15)
[2020-12-31 20:26] VITALS: BP 132/65
== END 2020-12-31 20:29 | disposition home or self-care (01) ==
LOC: ER 17:24
DX: R05 Cough (principal); U07.1 COVID-19; I10 Essential (primary) hypertension; D64.9 Anemia, unspecified; K21.9 Gastro-esophageal reflux disease without esophagitis; F41.9 Anxiety disorder, unspecified; Z87.19 Personal history of other diseases of the digestive system
CPT/HCPCS: 36415; 71045; 80053; 84484; 85025; 99283; J1100; J7050

== ENCOUNTER → 2021-11-05 | Day surgery (SDC) | payer BC ==
[~2021-11-05] MED LIST changes: +CHOLESTEROL MED; +CRESTOR5 MG; +FENTANYL CITRATE/PF 100MCG/2 ML INJ ONE; +HYOSCYAMINE SULFATE 0.5 MG/ML INJ ONE; +LIALDA1.2 GM PO; +LIDOCAINE HCL 2% LOCAL INJ 5 ML SDV VIAL INJ ONE; +MIDAZOLAM HCL 2 MG/2 ML VIAL ONE; +PROPOFOL IV EMULSION 10 MG/ML 20 ML VIAL ONE; +[UNRECOGNIZED DRUG - REMARK]
[2021-11-05 10:45] VITALS: BP 128/84
[2021-11-05 13:47] LABS: C DIFFICILE TOXIN A&B AMP PROB NEGATIVE (NEGATIVE); WBC,FECAL (FECAL LACTOFERRIN) NEGATIVE (NEGATIVE)
== END | disposition home or self-care (01) ==
LOC: OR 07:31
PROVIDERS: ATTEND Internal Medicine Gastroenterology
DX: K51.90 Ulcerative colitis, unspecified, without complications (principal); K51.20 Ulcerative (chronic) proctitis without complications; K57.30 Diverticulosis of large intestine without perforation or abscess without bleeding; K64.8 Other hemorrhoids; Z71.3 Dietary counseling and surveillance; G47.33 Obstructive sleep apnea (adult) (pediatric); D50.9 Iron deficiency anemia, unspecified; R55 Syncope and collapse; I10 Essential (primary) hypertension; I45.10 Unspecified right bundle-branch block; Z88.2 Allergy status to sulfonamides; Z88.8 Allergy status to other drugs, medicaments and biological substances; Z01.810 Encounter for preprocedural cardiovascular examination; Z01.812 Encounter for preprocedural laboratory examination; Z20.822 Contact with and (suspected) exposure to COVID-19; Z79.899 Other long term (current) drug therapy; Z68.33 Body mass index [BMI] 33.0-33.9, adult; Z98.84 Bariatric surgery status; Z80.0 Family history of malignant neoplasm of digestive organs
CPT/HCPCS: 36415; 45380; 83630; 83993; 86141; 87493; 93005; J1980; J2001; J2250; J2704; J3010; U0002; 45378